=== PATIENT | female | born 1945 | race Caucasian/White ===

== ENCOUNTER → 2017-08-29 06:55 | Outpatient (CLI) | payer MEDICARE, SELFPAY ==
--- NOTE | 2017-08-29 07:02 | BI_ITS ---
MAMMOGRAPHY - BILATERAL SCREENING REASON FOR EXAM: Female, 72 years old. Routine annual screening examination. PERTINENT HISTORY: Non-contributory. Prior right stereotactic breast biopsy. TECHNIQUE: Digital bilateral breast marlen (3D mammographic acquisition) in the CC and MLO projections. 2-D mediolateral oblique (MLO) and craniocaudad (CC) views of both breasts were obtained. CAD: Full Field Digital Mammography with Computer Added Detection was performed. COMPARISON: Comparison is made with prior study dated May 25, 2015 and July 26, 2016. FINDINGS: Breast Composition: The breasts are heterogeneously dense, which may obscure small masses. There are no dominant masses or suspicious calcifications. A tissue clip marker right breast. Scattered benign-appearing calcifications. No other significant abnormalities are identified. There has been no significant change since the prior study. BI/SCREENING MAMM (CAD), BILAT IMPRESSION: Stable bilateral screening mammogram. Yearly follow-up mammogram recommended. (A) ASSESSMENT CATEGORY: BIRADS Category 2: Benign. A letter regarding these results will be sent to the patient by the facility within 30 days. Approximately 10% of breast cancers are not detected by mammography. A normal mammogram should not delay biopsy of a clinically suspicious abnormality. [id number] Electronically Signed: Trevor Delgadillo MD at 14:14 EDT Tel [phone], Service support ,
== END ==
PROVIDERS: Family Provider Family Medicine; PCP Family Medicine; Visit Provider Family Medicine
DX: Z12.31 Encounter for screening mammogram for malignant neoplasm of breast (principal)
CPT/HCPCS: 77063; 77067

== ENCOUNTER → 2018-10-17 07:00 | Outpatient (CLI) | payer MEDICARE, SELFPAY ==
[2018-04-26 07:38] VITALS: BMI 32.5
--- NOTE | 2018-10-17 06:58 | BI_ITS ---
MAMMOGRAPHY - BILATERAL SCREENING REASON FOR EXAM: Female, 73 years old. Routine annual screening examination. PERTINENT HISTORY: Non-contributory. Remote right stereotactic breast biopsy. TECHNIQUE: Digital bilateral breast leeanna (3D mammographic acquisition) in the CC and MLO projections. 2-D mediolateral oblique (MLO) and craniocaudad (CC) views of both breasts were obtained. CAD: Full Field Digital Mammography with Computer Added Detection was performed. COMPARISON: Comparison is made with prior study dated August 29, 2017 and July 26, 2016. FINDINGS: Breast Composition: The breasts are heterogeneously dense, which may obscure small masses. There are no dominant masses or suspicious calcifications. No other significant abnormalities are identified. There has been no significant change since the prior study. BI/SCREEN MAMM (CAD) W/LEEANNA BILAT IMPRESSION: Stable bilateral screening mammogram. Yearly follow-up mammogram recommended. (A) ASSESSMENT CATEGORY: BIRADS Category 1: Negative. A letter regarding these results will be sent to the patient by the facility within 30 days. Approximately 10% of breast cancers are not detected by mammography. A normal mammogram should not delay biopsy of a clinically suspicious abnormality. [id number] Electronically Signed: Trevor Delgadillo, at 10:17 EDT , Service support ,
== END ==
PROVIDERS: Family Provider Family Medicine; PCP Family Medicine; Referring Provider Family Medicine; Visit Provider Family Medicine
DX: Z12.31 Encounter for screening mammogram for malignant neoplasm of breast (principal)
CPT/HCPCS: 77063; 77067

== ENCOUNTER → 2019-03-07 12:12 | Outpatient (CLI) | payer MEDICARE, SELFPAY ==
[2018-04-26 07:38] VITALS: BMI 32.5
--- NOTE | 2019-03-07 12:15 | RAD_ITS ---
STUDY: X-RAY - PELVIS AND RIGHT HIP REASON FOR EXAM: Female, 74 years old. Pain. TECHNIQUE: 3 views of the pelvis and hip. COMPARISON: None. FINDINGS: There is a non-specific bowel gas pattern. Normal visualized soft tissue structures. There is narrowing with cortical sclerosis and osteophyte formation of the sacroiliac joint consistent with mild degenerative osteoarthritic changes. Normal bilateral superior and inferior pubic rami. Normal pubic symphysis. Normal bilateral ischial tuberosities. There are osteoarthritic changes of the femoral head with marginal osteophyte formation. There is osteoarthritic spur formation of the acetabular rim. There is moderate to severe articular joint space narrowing of the hip. No acute fracture. RAD/HIP, UNI W/ Pelvis 2-3 Views IMPRESSION: Degenerative disease as described above, moderate to severe on the right. No acute fracture or subluxation. Electronically Signed: Joana Butterfield MD at 2:21 EST , Service support ,
--- NOTE | 2019-03-07 12:21 | RAD_ITS ---
STUDY: X-RAY - LUMBAR SPINE REASON FOR EXAM: Female, 74 years old. Pain. TECHNIQUE: 5 view(s) of the lumbar spine were obtained. COMPARISON: 11/16/14. FINDINGS: Normal lumbar lordosis. There is no substantial scoliosis. There is a normal alignment of the vertebrae. There is multilevel endplate spondylosis of the lumbar vertebrae. There is multi-level degenerative disc disease with multi-level disc space narrowing. There is no demonstrated fracture. There is no demonstrated spondylolysis of the pars interarticulares. There is multilevel bilateral facet hypertrophic changes. There is atherosclerotic calcification of the abdominal aorta without a demonstrated aneurysm. RAD/L/S Spine Min 4 Views IMPRESSION: Multilevel spondylosis/degenerative disease with no acute fracture, spondylolisthesis or pars defect. Electronically Signed: Joana Butterfield MD at 2:31 EST , Service support ,
== END ==
PROVIDERS: Family Provider Family Medicine; PCP Family Medicine; Referring Provider Family Medicine; Visit Provider Family Medicine
DX: M25.551 Pain in right hip (principal); G89.29 Other chronic pain; M51.36 Other intervertebral disc degeneration, lumbar region
CPT/HCPCS: 72110; 73502

== ENCOUNTER → 2019-11-27 08:11 | Outpatient (CLI) | payer MEDICARE, SELFPAY ==
[2019-05-05 07:25] VITALS: BMI 32.5
--- NOTE | 2019-11-27 08:14 | BI_ITS ---
MAMMOGRAPHY - BILATERAL SCREENING REASON FOR EXAM: Female, 74 years old. Routine annual screening examination. PERTINENT HISTORY: Non-contributory. Remote right stereotactic breast biopsy. TECHNIQUE: Digital bilateral breast leeanna (3D mammographic acquisition) in the CC and MLO projections. 2-D mediolateral oblique (MLO) and craniocaudad (CC) views of both breasts were obtained. CAD: Full Field Digital Mammography with Computer Added Detection was performed. COMPARISON: Comparison is made with prior examination dated 10/17/2018 and 08/29/2017. FINDINGS: Breast Composition: The breasts are heterogeneously dense, which may obscure small masses. There are no dominant masses or suspicious calcifications. Stable benign appearing bilateral macrocalcifications. No other significant abnormalities are identified. There has been no significant change since the prior study. BI/SCREEN MAMM (CAD) W/LEEANNA BILAT IMPRESSION: Stable bilateral screening mammogram. Yearly follow-up mammogram recommended. (A) ASSESSMENT CATEGORY: BIRADS Category 2: Benign. A letter regarding these results will be sent to the patient by the facility within 30 days. Approximately 10% of breast cancers are not detected by mammography. A normal mammogram should not delay biopsy of a clinically suspicious abnormality. [id number] Electronically Signed: Trevor Delgadillo, at 10:21 EDT , Service support ,
== END ==
PROVIDERS: PCP Family Medicine; Referring Provider Family Medicine; Visit Provider Family Medicine
DX: Z12.31 Encounter for screening mammogram for malignant neoplasm of breast (principal)
CPT/HCPCS: 77063; 77067

== ENCOUNTER 2020-02-04 10:14 | Observation (INO) | payer MEDICARE, SELFPAY ==
[2019-05-05 07:25] VITALS: BMI 32.5
[2020-01-14 10:12] LABS: Absolute Lymphocyte Count 2.06 X10^3/uL (0.83-4.51); Basophil# 0.07 X10^3/uL; Basophil% 0.9 % (0-1); Eosinophil# 0.23 X10^3/uL; Eosinophils% 2.9 % (0-5); Hematocrit 45.2 % (37-47); Hemoglobin 14.3 g/dL (12.0-15.0); Lymphocyte # 2.06 X10^3/ul (4.0); Mean Corp Hgb Conc 31.6 g/dL (32-36); Mean Corpuscular Volume 91.7 fL (81-99); Mean Platelet Vol. 10.2 fl (6.2-12.0); Monocyte# 0.54 X10^3/uL; Monocyte% 6.8 % (0-10); NRBC Flagged by Analyzer 0 % (0-5); Neutrophil # 5.02 X10^3/uL (2.7-7.7); Neutrophil % 63.3 % (47-70); Platelet Count 274 K/mm3 (150-450); RBC Distribution Width SD 43.8 fl (35.1-43.9); Red Blood Count 4.93 M/mm3 (4.2-5.4); White Blood Count 7.9 K/mm3 (4.4-11.0)
[2020-01-14 10:42] LABS: Anion Gap 4 (5-15); BUN 15 mg/dL (7-18); BUN/Creat Ratio 17.9 RATIO (10-20); Chloride 104 mmol/L (98-107); Creatinine, Serum 0.84 mg/dL (0.55-1.02); EST Glomerular Filtration Rate 70 mL/min (>60); Est Glom Filt Rate - Afr Amer 85 mL/min (>60); Glucose 91 mg/dL (74-106); Sodium Level 139 mmol/L (136-145)
--- NOTE | 2020-01-14 21:48 | HP.PCM_ITS ---
History and Physical History and Physical [facility] Patient Name: Ashleigh Alvarez : 1945 From: JC ROLDAN PA-C DATE OF SURGERY: 02/04/2020 SCHEDULED PROCEDURE: right total hip arthroplasty HISTORY OF PRESENT ILLNESS: Preoperative history and physical exam was performed on January 14, 2020. This is a 74-year-old female who has been having ongoing pain for the past 1 year and her right hip. Patient states she did have a fall in April 2018. Her pain can reach 5/10 with activity. Patient does complain of a limping gait due to the pain. Her pain has been intermittent, dull, aching. She has difficulty with activities of daily living including housework and shopping. She has difficulty putting on her socks and shoes. Patient does have start up pain. She does complain of right groin pain. Patient has attempted conservative measures of the right hip including rest, heat, cortisone injection with minimal relief. She has been on oral medications including Advil with no relief in symptoms. Patient has been having occasional pain at nighttime. After failing conservative measures and discussing all treatment options with Dr. Rojelio Dill, the patient does wish to proceed with a right total hip arthroplasty. We are obtaining surgical clearance from the primary care physician Dr. Trevino. Patient currently denies chest pain, shortness of breath, fevers chills, recent infections. REVIEW OF SYSTEMS: ROS: Const: Denies anorexia, anxiety, change in appetite, fever and weight change,hard of hearing, and vision problems. CV: Denies chest pain, heart murmur, irregular heartbeat and peripheral vascular disease. Resp: Denies asthma, cough, pneumonia, sleep apnea, shortness of breath, tuberculosis and wheezing. GI: Denies constipation, diarrhea, heartburn, nausea, bloody stools and vomiting, and difficulty swallowing. : Reports postmenopausal symptoms. Denies incontinence. Musculo: Denies leg swelling, trouble walking and weakness and limp. Skin: Denies Raynaud's, history of shingles and tattoo. Neuro: Denies ambulatory dysfunction, dizziness, numbness/tingling and tremor. Psych: Denies anxiety, depression, insomnia, mental illness and stress. Ganesh/Lymph: Denies anemia, bleeding/bruising tendency and past transfusion. Reviewed, no changes. PAST MEDICAL HISTORY: Advance Care Plan: No Advance Directives Effective Date: 04/16/2019 PMH: Medical Problems: High Blood Pressure, Acid Reflex Accidents: Fracture - (2001) RIGHT LEG Surgical Hx: Tonsillectomy - (1967) [place] Tubal Ligation - (1974) [facility] Foot Surgery - (1997) LT Carpal Tunnel - (1998) [facility] Hemorrhoidectomy, LT Catarcat Caterac Sugery - (07/09/2018) @[facility], Anesthesia Complications: None Assistive Devices: Contacts Reviewed and updated. 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 Personal Habits: Cigarette Use: Never.Smokeless Tobacco: Never Used Smokeless Tobacco.E-Cigarette Use: Never used.Alcohol: Occasionally.Drug Use: Denies Use.Enjoy Exercising: Daily. Reviewed, no changes. VITALS: Ht: 63 Wt: 187lb 2oz Wt k.880 BMI: 33.1 BP: 140/92 Pulse: 69 Resp: 16 T: 95.2 T: 35.1C Pain Level: 6 ALLERGIES: No Known Drug Allergy MEDICATIONS: Lansoprazole 30 mg Take 1 capsule by mouth daily, Fluticasone Propionate 50 mcg/Act 1 spray by Nasal route daily/ NEEDED, Atenolol 50 mg 1 PO qday, Aspirin 81 mg 1 PO qday, Vitamin D3 25 mcg (1000 Ut) 1 po qd, Advil 200 mg 1po bid PRE-OP EXAM: General appearance:NORMAL Other: Eyes: Conjunctivae and lids: NORMAL Pupils: ERR Ears, Nose, Mouth, and Throat: NORMAL Other: Inspection of lips, teeth and gums: NORMAL Other: Neck: Examination of neck: no masses noted. Respiratory: Assessment of respiratory effort: NORMAL Other: Auscultation of lungs: clear to auscultation no wheezes, rhonchi or rales. Cardiovascular: Auscultation of heart: regular rate and rhythm, positive systolic murmur. Exam of carotid arteries: NORMAL Other: Gastrointestinal: Exam of abdomen: soft, nontender, nondistended bowel sounds present. PHYSICAL EXAMINATION: Patient walks with an antalgic gait. Right hip is cool to touch that erythema or signs of infection. She has tenderness to palpation of the greater trochanteric region. Full extension. She has obligatory external rotation with flexion. Internal rotation 5, external rotation 25. Sensation intact to light touch. IMAGING STUDIES: Previous x-rays of the right hip reveal joint space narrowing, subchondral sclerosis, osteophyte formation consistent with severe stage IV osteoarthritis with subchondral cysts noted in the femoral head with flattening of the femoral head. IMPRESSION: 1. Severe right hip osteoarthritis 2. Hypertension 3. Gastroesophageal reflux disease PLAN: Dr. Rojelio Dill did discuss and review with the patient all treatment options including surgical versus nonsurgical options. Patient does wish to proceed with the above-stated procedure. Potential risks, benefits, and complications of the procedure were discussed in detail including but not limited to , infection, nerve and blood vessel damage, persistent pain, numbness, tingling, paresthesias, blood clot, pulmonary embolism, and requirement for possible further surgery. The patient expressed full understanding and has no further questions for the doctor. Patient does agree to proceed with the above-stated procedure and has signed the surgery consent form. We discussed the current risks associated with COVID 19. This does include the risk of exposure while in the hospital. Patient was reassured local hospitals have low infection rates and are taking all necessary precautions to avoid exposure to patients. In addition, we discussed strategies that can be used to help limit exposure including those that limit the patient's time in the hospital. Also using strategies to limit the patient's need for continued inpatient services after being discharged from the hospital. Patient was notified that we will need to comply with any screening or testing the hospital wishes to perform or that surgery may be delayed for any positive results. This dictation was created using voice recognition software. Phonetic and/or grammatical errors may exist. ___ I have re-examined the patient. There are no clinical changes since date of exam. ___ See progress notes for changes. ___ Dictated on admission Date: Time: Signature:
--- NOTE | 2020-01-28 08:48 | EKG12_ITS ---
Test Reason : PRE OP Blood Pressure : / mmHG Vent. Rate : 062 BPM Atrial Rate : 062 BPM P-R Int : 164 ms QRS Dur : 130 ms QT Int : 432 ms P-R-T Axes : 048 -49 035 degrees QTc Int : 438 ms Normal sinus rhythm Right bundle branch block Left anterior fascicular block Bifascicular block Voltage criteria for left ventricular hypertrophy Abnormal ECG Confirmed by DERICK LEONARDO, JOAN ([id number]), digital editor CANDE VICKERS ([id number]) on 01/29/2020 9:00:08 AM Referred By: Rojelio Dill Confirmed By:JOAN SEPULVEDA MD
[2020-01-28 11:21] LABS: Magnesium 2.1 mg/dL (1.6-2.6)
[2020-02-04] VITALS (14 sets, daily range): BP systolic 112–157; BP diastolic 51–84; PULSE 66–89; RESP 14–18; TEMP 36–37.1; O2SAT 94–100; BMI 32.5; BMI 36.7
[2020-02-04] MEDS: Gabapentin 600 MG Tablet PO (10:35)
[2020-02-04] MEDS: Acetaminophen 500 MG Tablet 1000 MG PO ×2 (10:35→20:29)
[2020-02-04] MEDS: Lactated Ringers 1,000 ML 999 ML IV ×2 (10:46→12:05)
[2020-02-04] MEDS: Celecoxib 200 MG Capsule 400 MG PO (10:53)
[2020-02-04 11:11] LABS: Bedside Glucose 74 mg/dL (70-110)
--- NOTE | 2020-02-04 12:00 | RAD_ITS ---
STUDY: X-RAY - PELVIS AND RIGHT HIP REASON FOR EXAM: Female, 75 years old. TOTAL ANTERIOR HIP IN O.R. 8.7 SEC. FL. TECHNIQUE: 1 views of the pelvis and hip. COMPARISON: None. FINDINGS: Intraoperative imaging provided for right total hip replacement. There is good alignment RAD/Hip 1 view with Pelvis IMPRESSION: Status post right total hip replacement. There is good alignment. Electronically Signed: Trevor Delgadillo, at 14:48 EST , Service support ,
[2020-02-04] MEDS: Cefazolin 2 GM in 0.9% Normal Saline 100 ML IV (12:02)
[2020-02-04] MEDS: dexAMETHasone 10 MG/ML Vial IV (12:12)
[2020-02-04] MEDS: Lactated Ringers 1,000 ML 75 ML IV (12:30)
--- NOTE | 2020-02-04 13:13 | OP.PCM_ITS ---
Report of Operation Date of Procedure: 02/04/20 Pre-Operative Diagnosis: Right hip primary osteoarthritis Post-Operative Diagnosis: Right hip primary osteoarthritis Surgery/Procedure Performed:: Right direct anterior minimally invasive total hip replacement Description of Surgical Findings:: Stable hip with equal leg lengths rhinestone setter: Bhupendra Gordon Type of Anesthesia:: Spinal Anesthesiologist: Donis Colon Special Medications: 2 g Ancef, 1 g TXA at incision, 1 g TXA closure, 10 mg Decadron, joint cocktail (5 mg Duramorph, 30 mL of 0.5% Ropivicaine, 1000 units of epinephrine, 30 mg of Toradol) Specimen's removed: Bony cuts Estimated Blood Loss (mL): 200 Fluids Replaced: 1600 mL crystalloid Description of Procedure: Components used: 1. Accolade 2 Avenel femoral stem size 3 127? 2. Avenel trident 2 acetabular shell size 50 mm 3. Sandro X3 polyethylene D 4. Avenel Biolox delta 36mm, -2.5mm femoral head Brief history operative indications: 75 yo f who failed conservative measures for their hip osteoarthritis. X-rays were consistent with osteoarthritis including joint space narrowing, osteophyte formation and subchondral cysts. Total hip replacement was discussed with the patient with risks and benefits including but not limited to blood loss, DVTs, PEs, neurovascular damage, dislocation, general risks of anesthesia including loss of life. Patient demonstrated an understanding medical clearance is obtained the patient was consented for surgery. Procedure: On the date of procedure the patient's R hip was marked in the preoperative area. Patient was then taken back to the operating room where anesthesia assumed control of the C-spine and airway and administered anesthetic. Patient was transferred to the operating table and placed in the supine position. The hips were placed at the break of the bed and a sacral bump was placed. The R lower extremity was then prepped out in a sterile fashion using chlorhexidine while the surgeon scrubbed. The PA was vital in the positioning of the patient. Upon reentering the room the R lower extremity was draped in the standard orthopedic fashion and the incision was marked. A timeout was called and everyone agreed upon the side, the site, the procedure be performed, antibody given, and patient's identity. At this time incision was made through skin, subcutaneous tissue, and fat down to fascia. The fascia was then incised and the TFL was retracted laterally. A retractor was placed on the lateral border of the femoral neck. Attention was directed to the inferior portion of the approach and all crossing vessels were identified and appropriately coagulated. A retractor was then placed on the medial portion of the femoral neck. The anterior capsule was then cleared of all soft tissue and then H shaped capsulotomy was made. The retractors were then placed inside the capsule. The femoral neck was identified and a cleanup cut was made. At this time a power corkscrew was used to remove the femoral head. Attention was then turned toward the acetabulum where the soft tissues were appropriately retracted and the acetabulum was sequentially reamed to 50 mm. A 50 mm cup was then selected and impacted into place. Acetabular liner was impacted into place and locking mechanism was verified. The position of the acetabular cup was then verified under live fluoroscopy. Attention was then turned to the femur. Soft tissue releases on the medial and lateral femoral neck were appropriately done, the leg was externally rotated and lateralized. A Silver retractor was placed medially and proximally to the greater trochanter this allowed appropriate visualization and exposure of the femoral canal. Rongeour was then used to remove excess lateral bone. A canal finder and entry broach were used to open the proximal canal. Once we verified we were down the femoral canal we subsequently broached up to a size 3 femur. The appropriate neck was placed in the previously selected head was trialed with a -2.5 mm neck. Traction was pulled and the hip was reduced with internal rotation. Once it was appropriately reduced and stability was checked. There was minimal shuck, equal leg lengths and appropriate stability with hyperex tension and external rotation as well as with 90? flexion and internal rotation. Fluoroscopy was then also used to verify the position of the components and leg lengths using the contralateral side for comparison. The trial components were then dislocated the proximal femur was again exposed and the components were removed from the wound. The final components were verified and opened. The wound was copiously irrigated out with normal saline. The acetabulum was checked for any residual debris. The final components were placed and impacted. Traction and internal rotation were again used to reduce the hip. After adequate reduction the hip remained stable with appropriate leg lengths. The final components were once again checked with live fluoroscopy and were found to be satisfactory. The wound was then copiously irrigated with normal saline once more, and hemostasis was obtained. Closure was then done using #1 Vicryl runner to close the fascia. A 2-0 vicryl interuppted sutures were used to close the subcutaneous skin. A 3-0 Monocryl and Steri-Strips were used for final skin closure. A Silverlon dressing was placed. Patient was awakened by anesthesia and [facility] Patient was then transferred to the PACU for recovery. During the course of the procedure the physician crystal machining coordinator (PE) played a vital role. Their intimate knowledge of my steps in the procedure aided in safe and expedient completion of the procedure. The PE played a vital rolls in positioning particularly in obtaining the appropriate positioning of the sacral bump. The PE was also vital in the retraction of soft tissues during the exposure and especially the femoral work as this is a vital part of the procedure to prevent complications and fractures. The PE was also vital and p rotecting soft tissues during times of bony cuts and reaming. He also played a vital role in closure with my direct supervision. The PE was also important during reduction and dislocation of the joint and trials intraoperatively. Postoperative plan: Patient will get 24 hours postop antibiotics. Patient will get in-house physical therapy and will be weight-bear as tolerated. Patient will follow up in office in 2 weeks for a wound check and x-rays. Aspirin 81 mg twice daily. - Complications No intraoperative complications - Admit VTE Documentation VTE Present on Admission: No VTE Mechan Device Prophylaxis: SCD's, Thigh High SKYLAR Hose VTE Pharm Prophylaxis ordered?: Yes
--- NOTE | 2020-02-04 13:58 | RAD_ITS ---
STUDY: X-RAY - PELVIS AND RIGHT HIP REASON FOR EXAM: Female, 75 years old. Post op right hip TECHNIQUE: 2 views of the pelvis and hip. COMPARISON: Comparison is made with prior study dated 03/07/2019. FINDINGS: Patient status post right total hip replacement. There is good alignment. RAD/Hip Min 2 Views (Portable) IMPRESSION: Status post right total hip replacement. There is good alignment. Electronically Signed: Trevor Delgadillo, at 14:32 EST , Service support ,
[2020-02-04] MEDS: Lactated Ringers 1,000 ML 125 ML IV (17:18)
[2020-02-04] MEDS: Ondansetron 4 MG/2 ML Vial IV (18:02)
[2020-02-04] MEDS: Ensure Surgery 237 ML LIQUID PO (18:04)
[2020-02-04] MEDS: Aspirin 81 MG TAB.CHEW PO (18:04)
[2020-02-04] MEDS: Cefazolin 1 GM/50 ML BAG IV (20:29)
[2020-02-04] MEDS: Senna/Docusate Sodium 1 Tablet 2 TABLET PO (20:29)
[2020-02-04] MEDS: oxyCODONE 5 MG Tablet PO (23:30)
[2020-02-05] MEDS: Cefazolin 1 GM/50 ML BAG IV (03:20)
[2020-02-05 05:29] VITALS: BP 154/70; PULSE 86; RESP 16; TEMP 36.6; O2SAT 96
[2020-02-05] MEDS: Acetaminophen 500 MG Tablet 1000 MG PO ×2 (05:41→13:32)
[2020-02-05 07:30] LABS: Hematocrit 38.8 % (37-47); Hemoglobin 12.7 g/dL (12.0-15.0); Mean Corp Hgb Conc 32.7 g/dL (32-36); Mean Corpuscular Hgb 29.5 pg (27.0-32.0); Mean Platelet Vol. 9.9 fl (6.2-12.0); Platelet Count 268 K/mm3 (150-450); RBC Distribution Width CV 12.3 % (11.6-14.6); Red Blood Count 4.31 M/mm3 (4.2-5.4); White Blood Count 15.1 K/mm3 (4.4-11.0)
[2020-02-05 08:00] LABS: Anion Gap 6 (5-15); BUN 17 mg/dL (7-18); BUN/Creat Ratio 22.2 RATIO (10-20); Calcium,Total 8.3 mg/dL (8.5-10.1); Chloride 105 mmol/L (98-107); Creatinine, Serum 0.77 mg/dL (0.55-1.02); EST Glomerular Filtration Rate 78 mL/min (>60); Est Glom Filt Rate - Afr Amer 94 mL/min (>60); Estimated Creatinine Clearance 39.59 ml/min; Glucose 119 mg/dL (74-106); Potassium 4.3 mmol/L (3.5-5.1); Sodium Level 139 mmol/L (136-145)
[2020-02-05] MEDS: Atenolol 50 MG Tablet PO (08:07)
[2020-02-05] MEDS: Pantoprazole Sodium 40 MG Tablet PO (08:07)
[2020-02-05] MEDS: Aspirin 81 MG TAB.CHEW PO (08:08)
[2020-02-05] MEDS: Famotidine 20 MG Tablet PO (08:08)
[2020-02-05 08:10] VITALS: BP 137/66; PULSE 86; RESP 18; TEMP 36.6; O2SAT 95
--- NOTE | 2020-02-05 09:19 | PCM.PN.ORT ---
Subjective: The patient was sitting in bed finishing up physical therapy upon examination. Patient denies any chest pain, shortness of breath, dizziness, lightheadedness, nausea or vomiting, or calf pain. Pain is controlled on medications. No adverse overnight events. Patient is doing very well. Pain is well controlled. She has tolerated therapy very well. She is wishing to go home today. Patient did have some nausea yesterday after surgery but this is resolved. Objective: Vital signs stable and afebrile. Patient is able to plantarflex and dorsiflex actively. Sensation is intact to light touch to saphenous, sural, superficial and deep peroneal, and tibial distribution. Dressing is clean dry and intact. Negative Homans bilaterally, negative signs and symptoms of DVT. - Physical Exam Vitals/I&O's: Vital Signs Temp Pulse Resp BP Pulse Ox 97.8 F 86 18 137/66 H 95 02/05/20 08:10 02/05/20 08:10 02/05/20 08:10 02/05/20 08:10 02/05/20 08:10 Oxygen Flow Rate (L/min) 6 Oxygen Delivery Method Room Air Weight: 94 kg Body Mass Index (BMI) 36.7 Intake and Output for Last 24 Hours 02/03/20 02/04/20 02/05/20 23:59 23:59 23:59 Intake Total 2772.5 / 3372.5 1950 / 1950 Output Total 500 / 500 950 / 950 Balance 2272.5 / 2872.5 1000 / 1000 General: Alert, Oriented x3, Cooperative, No apparent distress Laboratory Results 02/04/20 10:55: POC Glucose 74 02/05/20 07:05: WBC 15.1 H, RBC 4.31, Hgb 12.7, Hct 38.8, MCV 90.0, MCH 29.5, MCHC 32.7, RDW Std Deviation 41.0, RDW Coeff of Nikole 12.3, Plt Count 268, MPV 9.9 02/05/20 07:05: Sodium 139, Potassium 4.3, Chloride 105, Carbon Dioxide 28.0, Anion Gap 6, BUN 17, Creatinine 0.77, Estim Creat Clear Calc 39.59, Est GFR (MDRD) Af Amer 94, Est GFR (MDRD) Non-Af 78, BUN/Creatinine Ratio 22.2 H, Glucose 119 H, Calcium 8.3 L Current Medications Acetaminophen (Acetaminophen 500 Mg Tablet) 1,000 mg PO Q8 [facility] Last Admin: 02/05/20 05:41 Dose: 1,000 mg Documented by: Aspirin (Aspirin 81 Mg Tab.Chew) 81 mg PO BIDCM [facility] Last Admin: 02/05/20 08:08 Dose: 81 mg Documented by: Atenolol (Atenolol 50 Mg Tablet) 50 mg PO DAILY [facility] Last Admin: 02/05/20 08:07 Dose: 50 mg Documented by: Cholecalciferol (Cholecalciferol (Vit D3) 1,000 Unit (25mcg)) 1,000 unit PO DAILY [facility] Last Admin: 02/05/20 08:08 Dose: 1,000 unit Documented by: Enteral Nutritional Formula (Ensure Surgery 237 Ml Liquid) 237 ml PO TIDCM [facility] Last Admin: 02/05/20 08:11 Dose: Not Given Documented by: Famotidine (Famotidine 20 Mg Tablet) 20 mg PO DAILY [facility] Last Admin: 02/05/20 08:08 Dose: 20 mg Documented by: Fluticasone Propionate (Fluticasone 0.05% 1 [place] Nasal.Sry) 1 spray NASAL DAILY PRN PRN Reason: ALLERGIES Insulin Human Lispro (Insulin Lispro 100 Unit/Ml Insuln.Pen) 1 - 6 unit SC Q4H PRN PRN; Protocol PRN Reason: BG>/= 180, SEE PROTOCOL Ketorolac Tromethamine (Ketorolac 15 Mg/Ml Vial) 15 mg IV Q6H PRN PRN PRN Reason: Pain Score 1-5 Stop: 02/06/20 07:28 Meloxicam (Meloxicam 7.5 Mg Tablet) 7.5 mg PO BID [facility] Morphine Sulfate (Morphine 2 Mg/Ml Syringe) 2 - 4 mg IV Q2H PRN PRN PRN Reason: Pain Score 4-10 Morphine Sulfate (Morphine 4 Mg/Ml Syringe) 2 - 4 mg IV Q2H PRN PRN PRN Reason: Pain Score 4-10 Ondansetron HCl (Ondansetron 4 Mg/2 Ml Vial) 4 mg IV Q8H PRN PRN PRN Reason: NAUSEA Last Admin: 02/04/20 18:02 Dose: 4 mg Documented by: Oxycodone HCl (Oxycodone 5 Mg Tablet) 5 - 10 mg PO Q4H PRN PRN PRN Reason: Pain Score 4-10 Last Admin: 02/04/20 23:30 Dose: 10 mg Documented by: Pantoprazole Sodium (Pantoprazole Sodium 40 Mg Tablet) 40 mg PO DAILY [facility] Last Admin: 02/05/20 08:07 Dose: 40 mg Documented by: Promethazine HCl (Promethazine 25 Mg/Ml Syringe) 12.5 mg IM Q6H PRN PRN; Protocol PRN Reason: NAUSEA/VOMITING Senna/Docusate Sodium (Senna/Docusate Sodium 1 Tablet) 2 tablet PO BID [facility] Last Admin: 02/05/20 08:09 Dose: Not Given Documented by: Sodium Chloride (0.9% Saline Lock 10 Ml Syringe) 10 - 40 ml IV UD PRN PRN Reason: SALINE FLUSH Medical Necessity - Tobacco Use Smoking Status: Never smoker Assessment/Plan All Active Problems (Last Reviewed 05/05/19 @ 07:25 by Elke Quintana) URI, acute (Acute) 1. S/P right direct anterior total hip arthroplasty POD #1 2. Continue Pain Medications: Tylenol, meloxicam, oxycodone as needed 3. DVT Prophylaxis: Take 81 mg aspirin twice daily for 4 weeks postoperatively for DVT prophylaxis 4. PT/OT: Weightbearing as tolerated 5. H & H: 12.7/38.8, asymptomatic 6. Reactive leukocytosis: Currently 15.1, afebrile. Patient did receive Decadron intraoperatively 7. Encouraged Incentive Spirometry 8. Disposition: Orthopedically stable, plan will be for discharge home today. Patient would like her prescriptions sent to [facility] in [facility]. Patient does not want me to send narcotic but I will give her a prescription that she can take with her. She will only get filled if needed. Patient states she has a stool softener at home. She will continue with this until her first bowel movement. She has outpatient physical therapy established. She will follow-up per postop instructions. I have reviewed the [place] Automated Rx Reporting System (OARRS) report for this patient for refill pattern and other prescriber involvement as part of the appropriate surveillance for the provision of acute and chronic controlled medications. The report was requested and reviewed on the date of this entry and was considered in the prescribing process.
--- NOTE | 2020-02-05 09:25 | PCM.DC.THR ---
Discharge Diet: No Restrictions Discharge Activity: May Not Drive - while taking narcotic pain medications. May shower in (days): 1 - Dressing must be intact to skin. Turn dressing away from water. Do not submerge underwater for 4 weeks postoperatively Ice area for (Minutes): 20 - Every 1-2 hours while awake Weight Bearing Status: Weight bearing as tolerated Elevate: Operative Extremity Additional Activity Instructions:: Wear elastic stockings for 2 weeks. DO NOT use alcohol with narcotic pain medication. DO NOT make important decisions while taking narcotic medication. If you have problems with taking your medication (rash, itching, nausea, etc.) call the office at once. Call your doctor if your incision/area has: Increased Pain/ Swelling, Increased Redness, Foul Smelling Discharge Call your doctor if you observe: Fever of 101 or Higher Remove Dressing in (days):: 4 - Okay to remove dressing on February 09, 2020 Additional Instructions: Follow orthopedic postop instructions Allergies/Adverse Reactions: Allergies No Known Allergies Allergy (Verified 01/21/20 08:06) Medications to take at Discharge Atenolol [Tenormin (beta franca)] 50 mg PO DAILY 08/07/13 Cholecalciferol (VIT D3) [Vitamin D3] 1,000 unit PO DAILY 01/21/20 Fluticasone Propionate 1 spray INTRANASAL DAILY PRN 01/21/20 Lansoprazole [Prevacid] 30 mg PO DAILY 01/21/20 Acetaminophen [Tylenol] 1,000 mg PO Q8 #100 tab 02/05/20 Aspirin [Aspirin, Baby] 81 mg PO BIDCM 30 Days tab 02/05/20 Meloxicam [Mobic] 7.5 mg PO BID #60 tab 02/05/20 Oxycodone [Oxyir] 5 - 10 mg PO Q4H PRN PRN 4 Days #48 tab 02/05/20 Senna/Docusate Sodium [Senokot-S] 2 tablet PO BID tablet 02/05/20 The following prescriptions were given: Meloxicam [Mobic] 7.5 mg PO BID #60 tab Transmission Status: Pending to [facility]/pharmacy #[id number] Oxycodone [Oxyir] 5 - 10 mg PO Q4H PRN PRN 4 Days #48 tab PRN Reason: Pain Score 4-10 Prescription Printed Acetaminophen [Tylenol] 1,000 mg PO Q8 #100 tab Transmission Status: Pending to [facility]/pharmacy #[id number] Primary Care Physician: Jose Luis Trevino DO [Primary Care Provider] - Test Results: Test results from this visit will be discussed in further detail at your follow-up appointment, if applicable. Please Follow Up With: [facility] When: 02/09/20 @ 7:00 am Please Follow Up With: Bhupendra Gordon PA-C When: 02/18/20 @ 9:15 am
--- NOTE | 2020-02-05 11:00 | CASEMGMT ---
RN PAIGE Face to Face with patient for initial transition planning/care coordination assessment. RN CM introduced self and role at [facility]. Patient sitting in chair, alert and oriented. Patient willing to participate in assessment and is able to answer all questions appropriately. Care providers, pharmacy, and demographics verified. Patient wishes to discharge home and is setup with [facility] for outpatient therapy. Patient states she has no further needs or concerns at this time. CM to follow for discharge planning needs that may arise. PCP: Belinda Specialists: jenniefr Dill Pharmacy: [facility] Insurance: [email or web address] [facility] Prescription Benefit: yes Living Will/HPOA: yes, James MEDRANO: Living Arrangements: Patient lives with in a single story home with 1 step to enter the home. Patient states she was independent at home prior to surgery. Transportation: DME/HHC: Patient states she has walker and cane at home. Patient is setup with [facility] for outpatient therapy starting Sunday. Disposition Plan: Patient to discharge home with outpatient therapy, family support, and follow-up plans in place. Keren SALAZAR, RN, CM
--- NOTE | 2020-02-05 11:05 | CASEMGMT ---
JANINE GIBSON in to discuss TAI form with patient. RN PAIGE explained TAI for to patient, patient voiced understanding. Patient signed TAI form and placed in chart. Copy provided to patient. Patient had no further questions or concerns at this time.
[2020-02-05 13:45] VITALS: BP 146/98; PULSE 80; RESP 16; TEMP 36.7; O2SAT 96
== END 2020-02-05 14:05 | disposition home or self-care (01) ==
LOC: SDC 10:14 → MS3 10:14
PROVIDERS: Anesthesiology; Admitting Provider Specialist; PCP Family Medicine; Referring Provider Specialist; Visit Provider Specialist
PROC: (CPT 27284; principal; 2020-02-04 11:35)
DX: M16.11 Unilateral primary osteoarthritis, right hip (principal); Z20.828 Contact with and (suspected) exposure to other viral communicable diseases; I10 Essential (primary) hypertension; K21.9 Gastro-esophageal reflux disease without esophagitis; Z79.899 Other long term (current) drug therapy; Z79.82 Long term (current) use of aspirin; I45.2 Bifascicular block
CPT/HCPCS: 01214; 27130; 36415; 73501; 73502; 76000; 80048; 82962; 83735; 85025; 85027; 87081; 87635; 93005; 96361; 96365; 96366; 96375; 97110; 97116; 97162; 97166; 97530; 97535; 99218; 99251; C1776; C9803; J7120; G0378; G0379; G0463; J2405; U0003

== ENCOUNTER → 2022-12-21 | Outpatient (CLI) | payer MEDICARE, SELFPAY ==
[2022-12-21 11:59] LABS: Absolute Lymphocyte Count 1.97 X10^3/uL (0.83-4.51); Absolute Neutrophil Count 4.5 X10^3/uL (2.0-7.7); Basophil# 0.07 X10^3/uL; Eosinophil# 0.11 X10^3/uL; Eosinophils% 1.5 % (0-5); Hematocrit 44.8 % (37-47); Lymphocyte # 1.97 X10^3/ul (0.83-4.51); Lymphocyte % 27.3 % (19-41); Mean Corp Hgb Conc 31.3 g/dL (32-36); Mean Corpuscular Hgb 29.9 pg (27.0-32.0); Mean Corpuscular Volume 95.5 fL (81-99); Mean Platelet Vol. 10.6 fl (6.2-12.0); Monocyte# 0.58 X10^3/uL; NRBC Flagged by Analyzer 0 % (0-5); Neutrophil # 4.47 X10^3/uL (2.7-7.7); Neutrophil % 61.9 % (47-70); Platelet Count 275 K/mm3 (150-450); RBC Distribution Width CV 12.9 % (11.6-14.6); RBC Distribution Width SD 45.9 fl (35.1-43.9); Red Blood Count 4.69 M/mm3 (4.2-5.4); White Blood Count 7.2 K/mm3 (4.4-11.0)
[2022-12-21 12:23] LABS: ALB/GLOB Ratio 0.9 RATIO (0.9-2.4); AST(SGOT) 12 U/L (15-37); Alanine Aminotransfer ALT/SGPT 20 U/L (13-56); Albumin, Serum 3.4 g/dL (3.2-5.0); Alkaline Phosphatase 88 U/L (45-117); Anion Gap 3 (5-15); BUN 20 mg/dL (7-18); BUN/Creat Ratio 18.2 RATIO (10-20); Calcium,Total 9.2 mg/dL (8.5-10.1); Chloride 103 mmol/L (98-107); Cholesterol 243 mg/dL (200); EST Glomerular Filtration Rate 51 mL/min (>60); Est Glom Filt Rate - Afr Amer 62 mL/min (>60); Globulin 3.6 g/dL (2.2-4.2); Glucose 94 mg/dL (74-106); High Density Lipoprotein 52 mg/dL; Potassium 3.9 mmol/L (3.5-5.1); Sodium Level 138 mmol/L (136-145); Triglycerides 220 mg/dL; Very Low Density Lipoprotein 44 mg/dL (5-40)
== END | disposition home or self-care (01) ==
PROVIDERS: PCP Family Medicine; Referring Provider Family Medicine; Visit Provider Family Medicine
DX: Z00.00 Encounter for general adult medical examination without abnormal findings (principal); E78.5 Hyperlipidemia, unspecified; I10 Essential (primary) hypertension
CPT/HCPCS: 36415; 80053; 80061; 85025

== ENCOUNTER → 2023-02-08 | Outpatient (CLI) | payer MEDICARE, SELFPAY ==
[2023-02-08 12:24] LABS: Thyroid Stim Hormone (TSH) 2.11 uIU/mL (0.358-3.74)
== END | disposition home or self-care (01) ==
LOC: BFHLAB 10:25
PROVIDERS: PCP Family Medicine; Visit Provider Family Medicine
DX: R53.83 Other fatigue (principal)
CPT/HCPCS: 36415; 84443

== ENCOUNTER → 2023-03-09 | Outpatient (CLI) | payer MEDICARE, SELFPAY ==
--- NOTE | 2023-03-09 10:46 | ECHOD_ITS ---
Reason For Study: Murmur Procedure This was a 2D Doppler, Color Flow transthoracic echocardiogram. Exam performed in department. Left Ventricle Normal LV size. Mild concentric left ventricular hypertrophy. The left ventricular ejection fraction is 65 %. Diastolic function is indeterminate. Right Ventricle Normal right ventricle. Atria The left atrium is moderately enlarged. Normal right atrium. Mitral Valve There is Severe focal posterior mitral annular calcification. Mild-Moderate (1-2+) mitral valve insufficiency. Tricuspid Valve Trivial tricuspid valve insufficiency. Normal pulmonary artery pressure. Aortic Valve Mild aortic stenosis. Trivial aortic valve insufficiency. Pulmonic Valve The pulmonic valve is not well visualized. Great Vessels Normal sized aortic root. Pericardium/Pleural No pericardial effusion. MMode/2D Measurements & Calculations LVIDd: 3.4 cm IVSd: 1.1 cm LVOT diam: 2.0 cm LVIDs: 2.0 cm LVPWd: 1.0 cm LVOT area: 3.0 cm2 RVDd: 3.1 cm FS: 41.0 % Ao root diam: 3.0 cm LAV(MOD-bp): 49.6 ml LVAd ap4: 17.7 cm2 ACS: 0.75 cm LAV(MOD-bp) Indexed: 25.9 ml/m2 LVLd ap4: 6.4 cm LAV(MOD-sp2): 51.0 ml EDV(MOD-sp4): 40.5 ml LAV(MOD-sp4): 42.1 ml EDV(sp4-el): 41.7 ml LVAs ap4: 9.1 cm2 LVLs ap4: 5.1 cm ESV(MOD-sp4): 13.5 ml ESV(sp4-el): 13.7 ml EF(MOD-sp4): 66.7 % EF(sp4-el): 67.2 % SV(MOD-sp4): 27.0 ml SV(sp4-el): 28.0 ml LA A4 area: 17.2 cm2 LA dimension(2D): 4.2 cm RA A4 area: 10.3 cm2 TAPSE: 2.2 cm Time Measurements MV dec time: 0.33 sec Doppler Measurements & Calculations MV E max jose: 111.6 cm/sec Lat Peak E' Jose: 4.6 cm/sec Med Peak E' Jose: 4.2 cm/sec MV A max jose: 167.8 cm/sec E/E' lat: 24.2 E/E' med: 26.8 MV E/A: 0.67 MV V2 max: 181.5 cm/sec Ao V2 max: 215.3 cm/sec MV max P.2 mmHg MV dec slope: 338.4 cm/sec2 Ao max P.6 mmHg MV V2 mean: 116.6 cm/sec Ao V2 mean: 161.1 cm/sec MV mean P.0 mmHg Ao mean P.2 mmHg MV V2 VTI: 43.0 cm Ao V2 VTI: 51.3 cm AV (velocity ratio): 0.65 MVA(VTI): 2.3 cm2 PRITESH(I,D): 1.9 cm2 PRITESH(V,D): 1.8 cm2 LV V1 max: 131.8 cm/sec SV(LVOT): 99.4 ml PA V2 max: 84.0 cm/sec LV V1 max P.0 mmHg LV V1 mean P.6 mmHg LV V1 mean: 103.4 cm/sec LV V1 VTI: 33.2 cm TR max jose: 277.7 cm/sec TR max P.9 mmHg ECHO/Echo Complete Interpretation Summary Mild concentric left ventricular hypertrophy. The left ventricular ejection fraction is 65 %. Diastolic function is indeterminate. The left atrium is moderately enlarged. There is Severe focal posterior mitral annular calcification. Mild-Moderate (1-2+) mitral valve insufficiency. Mild aortic stenosis. Ordering Physician: Sheila Contreras Referring Physician: Sheila Contreras Performed By: Trisha Bowser, ERIKA, RVT
== END | disposition home or self-care (01) ==
LOC: CVS 10:45
PROVIDERS: PCP Family Medicine; Referring Provider Family Medicine; Visit Provider Family Medicine
DX: R01.1 Cardiac murmur, unspecified (principal); R53.83 Other fatigue
CPT/HCPCS: 93306

== ENCOUNTER → 2023-05-11 | Outpatient (CLI) | payer MEDICARE, SELFPAY ==
--- NOTE | 2023-05-11 06:44 | CDU_ITS ---
Reason For Study: LIGHTHEADEDNESS Rt. Velocities/BP Lt. Velocities/BP Prox CCA 47.4/10.6 cm/sec. Prox CCA 85.3/12.6 cm/sec. Mid CCA 48.7/9.1 cm/sec. Mid CCA 66.4/10.7 cm/sec. Dist CCA 45.0/11.0 cm/sec. Dist CCA 56.3/11.0 cm/sec. Prox ICA 38.2/11.1 cm/sec. Prox ICA 51.6/11.9 cm/sec. Mid ICA 68.0/19.6 cm/sec. Mid ICA 47.8/10.0 cm/sec. Dist ICA 80.5/22.9 cm/sec. Dist ICA 56.6/16.0 cm/sec. Rt. ICA/CCA = 1.7. Lt. ICA/CCA = 56.6/66.4=0.9. Prox ECA 48.7/5.3 cm/sec. Prox ECA 61.0/9.1 cm/sec. Rt. Vert. 39.6/9.7 cm/sec. Lt. Vert. 36.9/9.2 cm/sec. Right Extracranial There is intimal thickening but no significant atherosclerotic plaque noted in the right common carotid artery. There is homogeneous, smooth atherosclerotic plaque noted in the right internal carotid artery. The right internal carotid artery is very tortuous. There is no significant atherosclerotic plaque noted in the right external carotid artery. Antegrade flow is noted in the right vertebral artery. Left Extracranial There is intimal thickening but no significant atherosclerotic plaque noted in the left common carotid artery. There is heterogeneous, smooth atherosclerotic plaque noted in the left internal carotid artery. The left internal carotid artery is very tortuous. There is no significant atherosclerotic plaque noted in the left external carotid artery. Antegrade flow is noted in the left vertebral artery. VL/Carotid Duplex Ultrasound Interpretation Summary Mild (<50%) stenosis right extracranial internal carotid. Mild (<50%) stenosis left extracranial internal carotid. Patent and antegrade vertebrals bilaterally. Ordering Physician: Lianne Peace Referring Physician: Tanya Contreras Performed By: Lara Mckeon, ERIKA, RVT
--- OUTSIDE RECORDS SUMMARY | 2023-05-11 06:47 | XMS RPT_ITS | CCD ---
Author Name Unknown Address [address] [place] [address] Organization [facility] Care Team Providers Care Pearler Name Role Phone Jose Luis Trevino DO Primary Care Provider JOSE LUIS TREVINO Attending Unavailable JOSE LUIS TREVINO Primary Care Unavailable BIBIANA TEMPLE Attending Unavailable JOSE LUIS TREVINO Primary Care Unavailable Allergies Allergy Classification Reported Allergen(s) Allergy Type Date of Onset Reaction(s) Facility (3 sources) HMG-CoA reductase inhibitor Drug Intolerance 12-16-2004 [facility] Medications Current Medications Medication Drug Class(es) Dates Sig (Normalized) Sig (Original) aspirin 81 mg oral tablet (3 sources) Platelet Aggregation Inhibitor, Nonsteroidal Anti-inflammatory Drug Aspirin 81 MG capsule Take by mouth. 0 Active atenolol 50 mg oral tablet (4 sources) beta-Adrenergic Ronnell Start: 06-27-2022 End: 07-03-2022 take 1 tablet by mouth once daily atenolol (Tenormin) 50 MG tablet Take 1 tablet (50 mg) by mouth daily. 90 tablet 1 07/03/2022 Active cholecalciferol 0.025 mg oral capsule (3 sources) Vitamin D cholecalciferol (Vitamin D-3) 25 MCG (1000 UT) capsule Take by mouth. 0 Active fluticasone propionate 0.05 mg/actuat metered dose nasal spray (3 sources) Corticosteroid Start: 08-07-2022 fluticasone (Flonase) 50 MCG/ACT nasal spray SPRAY 1 SPRAY BY NASAL ROUTE EVERY DAY 48 mL 11 08/07/2022 Active Completed/Discontinued Medications Medication Drug Class(es) Dates Sig (Normalized) Sig (Original) atorvastatin 10 mg oral tablet (1 source) HMG-CoA Reductase Inhibitor Start: 11-30-2021 End: 07-03-2022 take 1 tablet by mouth once daily in the evening atorvastatin (Lipitor) 10 MG tablet Take 10 mg by mouth every evening. 0 11/30/2021 07/03/2022 Discontinued (Therapy completed) indomethacin 50 mg oral capsule (1 source) Nonsteroidal Anti-inflammatory Drug Start: 01-26-2022 End: 07-03-2022 indomethacin (Indocin) 50 MG capsule Take 50 mg by mouth. 0 01/26/2022 07/03/2022 Discontinued (Therapy completed) meloxicam 15 mg oral tablet (1 source) Nonsteroidal Anti-inflammatory Drug Start: 04-28-2022 End: 07-03-2022 meloxicam (Mobic) 15 MG tablet Take by mouth. 0 04/28/2022 07/03/2022 Discontinued (Alternate therapy) Problems Active Problems Problem Classification Problem Date Documented Date Episodic/Chronic Disorders of lipid metabolism (6 sources) Mixed hypercholesterolemia and hypertriglyceridemia; Translations: [Mixed hyperlipidemia] Onset: 1 Chronic Diverticulosis and diverticulitis (3 sources) Diverticular disease; Translations: [Diverticulosis of intestine, part unspecified, without perforation or abscess without bleeding] Onset: 5 01-15-2022 Chronic Esophageal disorders (6 sources) Gastroesophageal reflux disease without esophagitis; Translations: [Gastro-esophageal reflux disease without esophagitis] Onset: 5 Chronic Essential hypertension (6 sources) Essential hypertension; Translations: [Essential (primary) hypertension] Onset: 5 Chronic Heart valve disorders (3 sources) Aortic stenosis, non-rheumatic ; Translations: [Nonrheumatic aortic (valve) stenosis] Onset: 1 01-15-2022 Chronic Osteoarthritis (12 sources) Primary gonarthrosis, bilateral; Translations: [Bilateral primary osteoarthritis of knee] Onset: 1 Resolved: 3 Chronic Other upper respiratory disease (3 sources) Allergic rhinitis; Translations: [Allergic rhinitis, unspecified] Onset: 5 01-15-2022 Chronic Residual codes; unclassified (2 sources) Peripheral edema; Translations: [Localized edema] 10-31-2022 Episodic Residual codes; unclassified (2 sources) Localized edema; Translations: [Localized edema] Onset: 3 Episodic Spondylosis; intervertebral disc disorders; other back problems (6 sources) Degeneration of lumbar intervertebral disc; Translations: [Other intervertebral disc degeneration, lumbar region] Onset: Chronic Past or Other Problems Problem Classification Problem Date Documented Date Episodic/Chronic Other connective tissue disease (3 sources) H/O: gout; Translations: [Personal history of other diseases of the musculoskeletal system and connective tissue] Onset: 01-01-2015 01-15-2022 Episodic Other non-epithelial cancer of skin (3 sources) History of malignant basal cell neoplasm of skin; Translations: [Personal history of other malignant neoplasm of skin] Onset: 01-01-2015 01-15-2022 Episodic Other screening for suspected conditions (not mental disorders or infectious disease) (3 sources) Patient encounter status; Translations: [Encounter for other screening for malignant neoplasm of breast] Onset: 07-03-2022 Episodic Residual codes; unclassified (3 sources) Other specified health status; Translations: [Other drug allergy] Onset: 01-03-2021 01-15-2022 Episodic Residual codes; unclassified (3 sources) Maternal history of diabetes mellitus; Translations: [Family history of diabetes mellitus] Onset: 01-07-2016 01-15-2022 Episodic Spondylosis; intervertebral disc disorders; other back problems (3 sources) Sciatica; Translations: [Other specified dorsopathies, lumbar region] Onset: 01-01-2015 01-15-2022 Episodic Results Test Name Value Interpretation Reference Range Facil ity Vital Signs Date Time Vital Sign Value Performing Clinician Karin chao 10-31-2022 11:25-0400 Diastolic blood pressure 88 mm[Hg] Bibiana Temple PA-C Work Phone: [employer] 10-31-2022 11:25-0400 Systolic blood pressure 160 mm[Hg] Bibiana Temple PA-C Work Phone: [employer] 10-31-2022 11:04-0400 Body height 160 cm Bibiana Temple PA-C Work Phone: [employer] 10-31-2022 11:04-0400 Body mass index (BMI) [Ratio] 34.19 kg/m2 Bibiana Temple PA-C Work Phone: [employer] 10-31-2022 11:04-0400 Body temperature 98.2 [degF] Bibiana Temple PA-C Work Phone: [employer] 10-31-2022 11:04-0400 Body weight 87.54 kg Bibiana Temple PA-C Work Phone: [facility] 10-31-2022 11:04-0400 Heart rate 61 /min Bibiana Temple PA-C Work Phone: [facility] 10-31-2022 11:04-0400 SaO2% (BldA) [Mass fraction] 97 % Bibiana BROWN-C Work Phone: [facility] 07-03-2022 08:30-0400 Diastolic blood pressure 84 mm[Hg] Jose Luis Trevino DO Work Phone: [facility] 07-03-2022 08:30-0400 Heart rate 68 /min Jose Luis Trevino DO Work Phone: [facility] 07-03-2022 08:30-0400 Systolic blood pressure 138 mm[Hg] Jose Luis Trevino DO Work Phone: [facility] 07-03-2022 07:53-0400 Body height 160 cm Jose Luis Trevino DO Work Phone: [facility] 07-03-2022 07:53-0400 Body mass index (BMI) [Ratio] 34.72 kg/m2 Jose Luis Trevino DO Work Phone: [facility] 07-03-2022 07:53-0400 Body temperature 97.11 [degF] Jose Luis Trevino DO Work Phone: [facility] 07-03-2022 07:53-0400 Body weight 88.91 kg Jose Luis Trevino DO Work Phone: [facility] 07-03-2022 07:53-0400 SaO2% (BldA) [Mass fraction] 97 % Jose Luis Trevino DO Work Phone: [facility] Encounters Encounter Date Encounter Type Care Provider Facility Start: 11-09-2022 Refill Jose Luis diamond DO Work Phone: [facility] Medicine Procedures Date Procedure Procedure Detail Performing Clinician Start: 01-02-2022 Lipid 1996 panel - S oz or Plasma Jose Luis Trevino DO Work Phone: Plan of Treatment Date Care Activity Detail Author Start: 01-02-2027 Lipid panel Lipid Panel [facility] Start: 01-01-2023 End: 01-01-2023 Patient encounter procedure [facility] Start: 12-01-2022 Influenza vaccination Influenza Vacc ine (#1) [facility] Start: 02-12-2012 Zoster Vaccines (2 of 3) Zoste r Vaccines (2 of 3) [facility] Start: 01-29-1963 DTaP/Tdap/Td Vaccine s (1 - Tdap) DTaP/Tdap/Td Vaccines (1 - Tdap) [facility] Start: 01-29-1962 Diabetes mellitus screening Diabetes Screening [facility] Start: 01-29-1962 Hepatitis C screening Hepatitis C Sc reening [facility] Start: 1956 Depression Screening Depression Scre ening [facility] Start: 1945 Hepatitis B Vaccines (1 of 3 - 3-dose series) Hepatitis B Vaccines (1 of 3 - 3-dose series) [facility] Start: 1945 Screening for osteoporosis Bone Density Scan [facility] Immunizations Immunization Date Immunization Notes Care Provider Fa cility 12-22-2021 Covid-19, Pfizer Biv alent Booster, (Age 12y+), Im, 30 Mcg/0e Jose Luis Trevino DO Work Phone: [facility] 12-21-2021 Influenza, High-dose Seasonal, Quadrivalent, Preservative Free Jose Luis Trevino DO Work Phone: [facility] 12-21-2021 influenza virus vacc ine, unspecified formulation Bibiana Temple PA-C Work Phone: [facility] 06-30-2021 Covid-19, Pfizer Gra y Top, Do Not Dilute, (Age 12 Y+), Im, L Jose Luis Trevino DO Work Phone: [facility] 01-05-2021 Pfizer SARS-CoV-2 Vaccination Jose Luis Trevino DO Work Phone: [facility] 01-03-2021 Influenza, High-dose Seasonal, Quadrivalent, Preservative Free Jose Luis Trevino DO Work Phone: [facility] 05-25-2020 Pfizer SARS-CoV-2 Vaccination Jose Luis Trevino DO Work Phone: [facility] 12-02-2019 influenza virus vacc ine, unspecified formulation Jose Luis Trevino DO Work Phone: [facility] 12-02-2019 Influenza, High-dose Seasonal, Quadrivalent, Preservative Free Jose Luis Trevino DO Work Phone: [facility] 12-02-2019 influenza, seasonal, injectable, preservative free Jose Luis Trevino DO Work Phone: [facility] 02-06-2019 influenza, high dose seasonal, preservative-free Jose Luis Gundersona DO Work Phone: [facility] 01-18-2018 influenza, high dose seasonal, preservative-free Jose Luis Trevino DO Work Phone: [facility] 01-12-2017 influenza, injectabl e, quadrivalent, contains preservative Jose Luis Trevino DO Work Phone: [facility] 07-14-2016 pneumococcal conjuga te vaccine, 13 valent Jose Luis Trevino DO Work Phone: [facility] 01-07-2016 influenza, injectabl e, quadrivalent, contains preservative Jose Luis Gundersona DO Work Phone: [facility] 01-01-2015 influenza virus vacc ine, unspecified formulation Jose Luis Trevino DO Work Phone: [facility] 12-19-2012 influenza virus vacc ine, unspecified formulation Jose Luis Trevino DO Work Phone: [facility] 12-18-2011 tetanus toxoid, unsp ecified formulation Jose Luis Trevino DO Work Phone: [facility] 12-18-2011 zoster vaccine, live Jose Luis Petrilla DO Work Phone: [facility] 09-24-2010 pneumococcal polysac charide vaccine, 23 valent Jose Luis Trevino DO Work Phone: [facility] Payers Date Payer Category Payer Medicare [employer] MEDICARE A DVANTAGE A[employer]NA MEDICARE [id number] 2022-Present [address] [place] [address] Medicare HMO [id number] 2022 Medicare [id number] Social History Date Type Detail Facility Tobacco smoking status NHIS Never smoked tobacco [facility] Start: 07-03-2022 End: 10-31-2022 Alcohol intake Current drinker of alcohol (finding) [facility] Start: 07-03-2022 End: 10-31-2022 Alcohol intake [facility] Start: 1945 Sex Assigned At Not on file [facility] Start: 06-23-2022 End: 10-31-2022 Exposure to SARS-CoV-2 (event) Not sure [facility] Start: 10-31-2022 Tobacco use panel [facility] Telephone encounter Note 11-09-2022 Telephone Encounter - Sandy Woods MA - 11/09/2022 9:25 AM EDT Note Date & Type Note Facility 11-09-2022 Telephone encounter Note Form atting of this note might be different from the original. Rx loaded Last apt 10/31/22 [facility] Note 11-09-2022 Telephone Encounter - Sandy Woods MA - 11/09/2022 9:25 AM EDTTelephone Encounter - Sherry Jozef - 11/09/2022 8:17 AM EDT Note Date & Type Note Facility 11-09-2022 Miscellaneous Notes Formattin g of this note might be different from the original. Rx loaded Last apt 10/31/22 Ordering provider: lola Date of last office visit: 10/31/2022 Date of next office visit: 01/01/2023 Updated/Validated preferred pharmacy: [facility] Patient instructed to contact the pharmacy prior to picking up the medication: no (1) Medication name: furosemide Medication dosage: 20 mg (Miligrams Monthly quantity needed: 7 How many day supply requestin days Medication route: oral (PO) Medication administration time(s): daily If taking medication PRN, reason for taking medication: N/A If this is a controlled substance do you receive this or any other controlled medication from any other doctor or facility: No Date of last refill (see medication tab): 10/31/2022 documented in this encounter [facility] Telephone encounter Note 11-09-2022 Telephone Encounter - Sherry Haskins - 11/09/2022 8:17 AM EDT Note Date & Type Note Facility 11-09-2022 Telephone encount er Note Ordering provider: lola Date of last office visit: 10/31/2022 Date of next office visit: 01/01/2023 Updated/Validated preferred pharmacy: [facility] Patient instructed to contact the pharmacy prior to picking up the medication: no (1) Medication name: furosemide Medication dosage: 20 mg (Miligrams Monthly quantity needed: 7 How many day supply requestin days Medication route: oral (PO) Medication administration time(s): daily If taking medication PRN, reason for taking medication: N/A If this is a controlled substance do you receive this or any other controlled medication from any other doctor or facility: No Date of last refill (see medication tab): 10/31/2022 [facility] History of Present illness Narrative 10-31-2022 Bibiana Temple PA-C - 10/31/2022 11:20 AM EDT Note Date & Type Note Facility 10-31-2022 History of Presen t illness Narrative Formatting of this note is different fro m the original. Images from the original note were not included. [facility] [address] [facility] [address] Dept: [phone] Dept Loc: [phone] Visit type: Established Patient Reason for Visit: Foot Swelling (Both feet) Assessment and Plan 1. Mild peripheral edema - furosemide (Lasix) 20 MG tablet; Take 1 tablet (20 mg) by mouth daily for 7 days., Starting Sun10/31/2022, Until Sun11/07/2022, Normal -Very mild nonpitting peripheral edema in the lower extremities. Good bounding pulses no signs of infection no calf pain swelling or tenderness to suggest a DVT she has negative Homans' sign. I think a lot of this is secondary to just activity being upright in the heat because of this we will treat it with a diuretic for 1 week and encouraged her to report any worsening of her symptoms. She does not have any current shortness of breath chest pain or any signs of congestive heart failure. All questions were answered the bedside patient was comfortable with the plan. Follow up if symptoms worsen or fail to improve, for Next scheduled follow-up. Subjective HPI this is a 77-year-old female with an underlying history of aortic valve stenosis, hypertension, GERD, H LD and chronic back pain who contacted the [facility] for next day appointment evaluation of legs and feet swelling. Patient reports her symptoms started roughly 3 weeks ago for started getting significant mount of swelling in both feet and ankles. She denies any fever chills rigors denies any associated pain with it other than the swelling associated with her feet and ankles. She denies any chest pain shortness breath palpitations or difficulty breathing. Just had colonoscopy and showed one polyp but otherwise no concerns. Review of Systems Constitutional: Negative for chills and fever. HENT: Negative for congestion and sore throat. Respiratory: Negative for cough and shortness of breath. Cardiovascular: Positive for leg swelling. Negative for chest pain. Gastrointestinal: Negative for abdominal pain, diarrhea, nausea and vomiting. Genitourinary: Negative for difficulty urinating, dysuria, frequency and urgency. Musculoskeletal: Negative for back pain. Neurological: Negative for dizziness and light-headedness. All other systems reviewed and are negative. Allergies Allergen Reactions Statins Other reaction(s): Intolerance, Other (See Comments) myalgias shooting pains in breast and back. Outpatient Medications Prior to Visit Medication Sig Dispense Refill Aspirin 81 MG capsule Take by mouth. atenolol (Tenormin) 50 MG tablet Take 1 tablet (50 mg) by mouth daily. 90 tablet 1 cholecalciferol (Vitamin D-3) 25 MCG (1000 UT) capsule Take by mouth. coenzyme Q-10 200 MG capsule Take by mouth. fluticasone (Flonase) 50 MCG/ACT nasal spray SPRAY 1 SPRAY BY NASAL ROUTE EVERY DAY 48 mL 11 lansoprazole (Prevacid) [address] capsule Take 1 capsule (30 mg) by mouth daily. 90 capsule 1 POTASSIUM PO Take by mouth. No facility-administered medications prior to visit. Past Medical History: Diagnosis Date Allergic rhinitis Aortic valve stenosis 2020 per exam Breast cancer screening 11/2019 per Skyla in past, Here now DDD (degenerative disc disease), lumbosacral 2017 Diverticular disease Essential hypertension 1997 Family history of diabetes mellitus in mother type 2 DM GERD (gastroesophageal reflux disease) History of basal cell carcinoma anterior chest ([facility]) History of colonoscopy with polypectomy 08/2014 Vanessa, repeat 2021- defers till 2022 History of gout 2011 toes Knee osteoarthritis per Dr. Dill Menopause 1996 pap and pelvic per Dr. Sanchez 11/13 Mixed hypercholesterolemia and hypertriglyceridemia 2007 intolerant of statin Nonrheumatic aortic valve stenosis 07/19/2018 Osteoarthritis of right hip 2019 S/P THR 02/[address] 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 Gary COLONOSCOPY W/ POLYPECTOMY 07/2014 Dr. Mendez small polyp-repeat 2021 DILATION AND CURETTAGE OF UTERUS 2003 HEMORRHOID SURGERY 2014 TOTAL HIP ARTHROPLASTY Right 02/2020 Dr. Dill TUBAL LIGATION Family History Problem Relation Name Age of Onset Coronary artery disease Brother Eugenio 71.00 stents Other ([id number]) Mother AV repl Diabetes Mother age 71 of CHF, RF Other ([id number]) Brother cherry 65.00 AAA repair Hypertension Brother cherry COPD Father age 68, smoker Prostate cancer Brother Eugenio Hypertension Sister Mey Palafox Kidney cancer Sister Mey Palafox 64.00 Prostate cancer Brother cherry Objective BP (!) 160/88 (BP Location: Left arm, Patient Position: Sitting, BP Cuff Size: Adult) Pulse 61 Temp 36.8 C (98.2 F) (Temporal) Ht 5' 3 (1.6 m) Wt 193 lb (87.5 kg) SpO2 97% BMI 34.19 kg/m Physical Exam Vitals reviewed. Constitutional: General: She is not in acute distress. Appearance: Normal appearance. She is not ill-appearing or toxic-appearing. Eyes: General: No scleral icterus. Conjunctiva/sclera: Conjunctivae normal. Pupils: Pupils are equal, round, and reactive to light. Cardiovascular: Rate and Rhythm: Normal rate and regular rhythm. Heart sounds: Murmur heard. Pulmonary: Effort: Pulmonary effort is normal. No respiratory distress. Breath sounds: Normal breath sounds. Musculoskeletal: Cervical back: Normal range of motion and neck supple. Right lower leg: Edema present. Left lower leg: Edema present. Comments: Mild +1 edema ankles non pitting Skin: General: Skin is warm and dry. Neurological: Mental Status: She is alert. Psychiatric: Mood and Affect: Mood normal. Data Reviewed and Summarized Labs: Imaging/Testing: Bibiana Temple PA-C 10/31/2022 Please note that portions of this note may have been completed with voice recognition software. Documentation reviewed prior to signing but minor errors in warehouse operations manager may have occurred. documented in this encounter [facility] History of Present illness Narrative 07-03-2022 Jose Luis Trevino DO - 07/03/2022 8:00 AM EDT Note Date & Type Note Facility 07-03-2022 History of Presen t illness Narrative Formatting of this note is different fro m the original. Images from the original note were not included. [facility] [address] [address] Visit type: Established Patient Reason for Visit: Follow-up (6 month med check) Assessment / Plan: Ashleigh Dunne was seen today for follow-up. Diagnoses and all orders for this visit: Essential hypertension (Primary) Mixed hypercholesterolemia and hypertriglyceridemia Gastroesophageal reflux disease without esophagitis Breast cancer screening other than mammogram Lumbar degenerative disc disease Primary osteoarthritis of both knees Other orders - lansoprazole (Prevacid) [address] capsule; Take 1 capsule (30 mg) by mouth daily. - atenolol (Tenormin) 50 MG tablet; Take 1 tablet (50 mg) by mouth daily. Subjective: Patient ID: Ashleigh Alvarez is a 77 y.o. female. HPI hypertensive patient presents for refill on Prevacid for acid reflux. Of note will be seeing GI this week for follow-up colonoscopy on polyps. Might get upper GI. No breakthrough heartburn. No relief with meloxicam for knee arthritis recommended by her orthopedist. Presently feels well. Of note recent vascular screen showed adequate carotids and SINAN--normal ABIs blood pressure excellent there Would like a breast exam but deferring mammogram. No breast complaints. No family history of breast cancer. Review of Systems she feels well. Vaccinations up-to-date. No recent earache sore throat or cough. Denies chest pain PND dyspnea orthopnea or edema. No heartburn or dysphagia. Bowels are regular. No melena or blood. History of remote polypectomy 8 years ago. Stable heartburn. Recently told by orthopedics she has mild bilateral knee arthritis. Rare sciatica. Stretches and workouts to help with back. Is very happy with her hip replacement. Allergies Allergen Reactions Statins Other reaction(s): Intolerance, Other (See Comments) myalgias shooting pains in breast and back. Current Outpatient Medications on File Prior to Visit Medication Sig Dispense Refill Aspirin 81 MG capsule Take by mouth. cholecalciferol (Vitamin D-3) 25 MCG (1000 UT) capsule Take by mouth. coenzyme Q-10 200 MG capsule Take by mouth. fluticasone (Flonase) 50 MCG/ACT nasal spray SPRAY 1 SPRAY BY NASAL ROUTE EVERY DAY POTASSIUM PO Take by mouth. [DISCONTINUED] atenolol (Tenormin) 50 MG tablet [DISCONTINUED] lansoprazole (Prevacid) [address] capsule Take 30 mg by mouth daily. [DISCONTINUED] meloxicam (Mobic) 15 MG tablet Take by mouth. [DISCONTINUED] atorvastatin (Lipitor) 10 MG tablet Take 10 mg by mouth every evening. [DISCONTINUED] indomethacin (Indocin) 50 MG capsule Take 50 mg by mouth. No current facility-administered medications on file prior to visit. Patient Active Problem List Diagnosis Lumbar degenerative disc disease Sciatica associated with disorder of lumbar spine Statin intolerance Mixed hypercholesterolemia and hypertriglyceridemia Family history of diabetes mellitus in mother Osteoarthritis of right hip Allergic rhinitis Essential hypertension GERD (gastroesophageal reflux disease) Diverticular disease History of basal cell carcinoma History of gout Nonrheumatic aortic valve stenosis Primary osteoarthritis of both knees Social History Tobacco Use Smoking status: Never Smokeless tobacco: Never Substance Use Topics Alcohol use: Yes Alcohol/week: 2.0 standard drinks Past Surgical History: Procedure Laterality Date BREAST BIOPSY 2009 CARPAL TUNNEL RELEASE Bilateral CATARACT EXTRACTION W/ INTRAOCULAR LENS IMPLANT Left 07/2018 Dr. Gary COLONOSCOPY W/ POLYPECTOMY 07/2014 Dr. Mendez small polyp-repeat 2021 DILATION AND CURETTAGE OF UTERUS 2002 HEMORRHOID SURGERY 2013 TOTAL HIP ARTHROPLASTY Right 02/2020 Dr. Dill TUBAL LIGATION Family History Problem Relation Name Age of Onset Coronary artery disease Brother Eugenio 71.00 stents Other ([id number]) Mother AV repl Diabetes Mother age 71 of CHF, RF Other ([id number]) Brother cherry 65.00 AAA repair Hypertension Brother cherry COPD Father age 68, smoker Prostate cancer Brother Eugenio Hypertension Sister Mey Palafox Kidney cancer Sister Mey Palafox 64.00 Prostate cancer Brother cherry Objective: BP 138/84 Pulse 68 Temp 36.2 C (97.1 F) (Temporal) Ht 5' 3 (1.6 m) Wt 196 lb (88.9 kg) SpO2 97% BMI 34.72 kg/m Physical Exam The physical exam is generally normal. Patient appears well, alert and oriented x 3, pleasant, cooperative. Vitals are as noted. No carotid bruits. Neck supple, no abnormal adenopathy, thyroid lesions or masses. Ears, nose and throat are normal without acute findings. Lungs are clear to auscultation. Heart is regular, without murmurs, gallops or ectopy. Abdomen is soft, non tender, without masses, hepatosplenomegaly, or bruits. Normal BS evident. Extremities are normal without edema. Peripheral pulses are fair. No worrisome skin lesions. Screening neurological exam is normal without focal deficits. No breast masses, nipple discharge, skin changes, or axillary adenopathy documented in this encounter [facility] Evaluation note Note Date & Type Note Facility documented in this encounter [facility] Evaluation note Note Date & Type Note Facility documented in this encounter [facility] Evaluation note Note Date & Type Note Facility documented in this encounter [facility] Summary Purpose Family History No Family History Records Found Advance Directives No Advanced Directives Records Found Additional Source Comments Reason for Visit (unrecogniz ed section and content) Reason Comments Foot Swelling Both feet Reason Onset Date Comments Med Refill 11/09/2022 Care Teams (unrecognized sec tion and content) Pearler Relationship Specialty Start Date End Date Jose Luis Trevino DO [address] [place] [address] PCP - General 09/30/16 Pearler Relationship Specialty Start Date End Date Jose Luis Trevino DO [address] [place] [address] PCP - General 09/30/16 INFORMATION SOURCE (unrecogn ized section and content) FOR RECORDS PERTAINING TO PATIENTS WHO ARE OR HAVE BEEN ENROLLED IN A CHEMICAL DEPENDENCY/SUBSTANCEABUSE PROGRAM, SOME INFORMATION MAY BE OMITTED. This clinical summary was aggregated from multiple sources. Caution should be exercised in using it in the provision of clinical care. This summary normalizes information from multiple sources, and as a consequence, information in this document may materially change the coding, format and clinical context of patient data. In addition, data may be omitted in some cases. CLINICAL DECISIONS SHOULD BE BASED ON THE PRIMARY CLINICAL RECORDS. [facility]. provides no warranty or guarantee of the accuracy or completeness of information in this document.
--- NOTE | 2023-05-11 17:05 | STRESSREP_ITS ---
Stress Test Report Date: 05/11/2023 Procedure: Pharmacologic stress nuclear imaging study Indications: Dyspnea on exertion Consent: Per the patient Procedure: The patient underwent pharmacologic (Regadenoson 0.4mg ) evaluation with a peak heart rate of 90 beats per minute (63%predicted maximal heart rate) and a peak blood pressure of 142/90 mmHg. The baseline ECG demonstrated sinus rhythm. The peak pharmacologic ECG demonstrated no ischemic changes. There were no cardiac dysrhythmias pretest, during pharmacologic infusion, or recovery. There was no complaint of chest discomfort during pharmacologic infusion or recovery. The patient was injected with 14.5 millicuries of technetium 99m Cardiolite and subsequently rest SPECT Cardiolite nuclear imaging was obtained in the horizontal long, vertical long, and short axis views. The patient underwent pharmacologic (Regadenoson) evaluation. The patient was injected with 44 point millicuries of technetium 99m Cardiolite and subsequently stress SPECT Cardiolite nuclear imaging was obtained in the horizontal long, vertical long, and short axis views. A gated Cardiolite study at peak stress was obtained. The examination was stopped secondary to completion of protocol. Rest and stress SPECT Cardiolite nuclear imaging status post realignment, normalization, and attenuation correction demonstrate no fixed or reversible perfusion defects. There is end systolic thickening and brightening. The gated Cardiolite study demonstrates myocardial thickening and inward wall motion. The reported LVEF is 82%. Impression: 1. Pharmacologic (Regadenoson) evaluation 2. Peak pharmacologic ECG with no diagnostic changes. 3. There were no cardiac dysrhythmias pretest, during pharmacologic infusion, or recovery. 5. Rest and stress SPECT Cardiolite nuclear imaging demonstrate relative uniform tracer uptake and myocardial perfusion appearing within normal limits. 6. The gated Cardiolite study reports an LVEF of 82%. This note was generated with [employer] software. It may contain incorrect words, spelling, and punctuation that were not noted in checking the note before signing.
== END | disposition home or self-care (01) ==
LOC: CVS 06:43
PROVIDERS: PCP Family Medicine; Referring Provider Internal Medicine Cardiovascular Disease; Visit Provider Internal Medicine Cardiovascular Disease
DX: R06.09 Other forms of dyspnea (principal); I34.0 Nonrheumatic mitral (valve) insufficiency; I35.0 Nonrheumatic aortic (valve) stenosis; I11.9 Hypertensive heart disease without heart failure; R93.1 Abnormal findings on diagnostic imaging of heart and coronary circulation; R42 Dizziness and giddiness
CPT/HCPCS: 78452; 93017; 93880; A9500; A4216; J2785

== ENCOUNTER → 2023-11-26 | Outpatient (CLI) | payer MEDICARE, SELFPAY ==
[2023-11-26 12:17] LABS: Absolute Lymphocyte Count 1.63 X10^3/uL (0.83-4.51); Absolute Neutrophil Count 3.8 X10^3/uL (2.0-7.7); Basophil# 0.05 X10^3/uL; Basophil% 0.8 % (0-1); Eosinophil# 0.13 X10^3/uL; Eosinophils% 2.2 % (0-5); Hemoglobin 13.7 g/dL (12.0-15.0); Lymphocyte # 1.63 X10^3/ul (0.83-4.51); Mean Corp Hgb Conc 32.6 g/dL (32-36); Mean Corpuscular Hgb 29.8 pg (27.0-32.0); Mean Corpuscular Volume 91.5 fL (81-99); Mean Platelet Vol. 10.9 fl (6.2-12.0); Monocyte# 0.43 X10^3/uL; Monocyte% 7.1 % (0-10); NRBC Flagged by Analyzer 0 % (0-5); Neutrophil # 3.79 X10^3/uL (2.7-7.7); Neutrophil % 62.7 % (47-70); Platelet Count 246 K/mm3 (150-450); RBC Distribution Width CV 13.5 % (11.6-14.6); RBC Distribution Width SD 45.5 fl (35.1-43.9); Red Blood Count 4.59 M/mm3 (4.2-5.4)
[2023-11-26 12:34] LABS: AST(SGOT) 15 U/L (15-37); Alanine Aminotransfer ALT/SGPT 19 U/L (13-56); Albumin, Serum 3.4 g/dL (3.2-5.0); Alkaline Phosphatase 89 U/L (45-117); Anion Gap 5 (5-15); BUN 17 mg/dL (7-18); BUN/Creat Ratio 18.5 RATIO (10-20); Calcium,Total 9.2 mg/dL (8.5-10.1); Chloride 105 mmol/L (98-107); Cholesterol 250 mg/dL (200); Creatinine, Serum 0.92 mg/dL (0.55-1.02); EST Glomerular Filtration Rate 62 mL/min (>60); Est Glom Filt Rate - Afr Amer 76 mL/min (>60); Globulin 3.3 g/dL (2.2-4.2); Glucose 91 mg/dL (74-106); High Density Lipoprotein 51 mg/dL; Potassium 4.1 mmol/L (3.5-5.1); Protein, Total 6.7 g/dL (6.4-8.2); Sodium Level 138 mmol/L (136-145); Triglycerides 189 mg/dL; Very Low Density Lipoprotein 38 mg/dL (5-40)
== END | disposition home or self-care (01) ==
LOC: BFHLAB 08:32
PROVIDERS: PCP Family Medicine; Referring Provider Family Medicine; Visit Provider Family Medicine
DX: Z00.00 Encounter for general adult medical examination without abnormal findings (principal); E78.5 Hyperlipidemia, unspecified; I10 Essential (primary) hypertension
CPT/HCPCS: 36415; 80053; 80061; 85025

== ENCOUNTER → 2024-05-07 | Outpatient (CLI) | payer MEDICARE, SELFPAY ==
--- NOTE | 2024-05-07 13:44 | ECHOD_ITS ---
Reason For Study: Murmur Procedure This was a 2D Doppler, Color Flow transthoracic echocardiogram. Exam performed in department. Left Ventricle Normal LV size. Mild concentric left ventricular hypertrophy. Sigmoid septum. The left ventricular ejection fraction is 65 %. Stage 1 diastolic dysfunction. Right Ventricle Normal right ventricle. Atria The left atrium is mildly enlarged. Normal right atrium. Mitral Valve Severe mitral annular calcification. Mild-Moderate (1-2+) mitral valve insufficiency. Tricuspid Valve Mild tricuspid valve insufficiency. Normal pulmonary artery pressure. Aortic Valve Mildly thickened aortic valve leaflets. Mild aortic valve stenosis. Mean peak gradient 14 mmHg. Pulmonic Valve The pulmonic valve is not well visualized. Great Vessels Normal sized aortic root. Pericardium/Pleural No pericardial effusion. MMode/2D Measurements & Calculations LVIDd: 3.7 cm IVSd: 1.2 cm LVOT diam: 2.0 cm LVIDs: 2.4 cm LVPWd: 0.98 cm LVOT area: 3.2 cm2 RVDd: 4.0 cm FS: 35.4 % _ Ao root diam: 3.5 cm LAV(MOD-bp): 71.3 ml LVAd ap4: 17.5 cm2 LAV(MOD-bp) Indexed: 39.8 ml/m2 LVLd ap4: 6.0 cm LAV(MOD-sp2): 73.6 ml EDV(MOD- sp4): 42.1 ml LAV(MOD-sp4): 70.3 ml EDV(sp4- el): 43.8 ml LVAs ap4: 9.8 cm2 LVLs ap4: 5.0 cm ESV(MOD- sp4): 16.8 ml ESV(sp4- el): 16.2 ml EF(MOD- sp4): 60.2 % EF(sp4-el): 63.1 % _ SV(MOD-sp4): 25.4 ml SV(sp4-el): 27.7 ml Ao sinus diam: 3.1 cm SI(MOD-sp4): 14.2 ml/m2 _ Ao ST Junction: 2.3 cm LA A4 area: 21.8 cm2 LA dimension(2D): 4.1 cm _ TAPSE: 1.9 cm RA A4 area: 13.9 cm2 Time Measurements MV dec time: 0.39 sec Doppler Measurements & Calculations MV E max jose: 123.2 cm/sec Lat Peak E' Jose: 3.4 cm/sec Med Peak E' Jose: 3.9 cm/sec MV A max jose: 146.3 cm/sec E/E' lat: 35.9 E/E' med: 31.6 MV E/A: 0.84 _ MV V2 max: 162.2 cm/sec MV P1/2t max jose: 122.4 cm/sec Ao V2 max: 252.4 cm/sec MV max P.5 mmHg MV P1/2t: 118.7 msec Ao max P.5 mmHg MV V2 mean: 88.7 cm/sec MV dec slope: 302.0 cm/sec2 Ao V2 mean: 175.4 cm/sec MV mean P.6 mmHg Ao mean P.0 mmHg MV V2 VTI: 46.1 cm MVA(P1/2t): 1.9 cm2 Ao V2 VTI: 64.0 cm MVA(VTI): 1.9 cm2 AV (velocity ratio): 0.43 PRITESH(I,D): 1.4 cm2 PRITESH(V,D): 1.5 cm2 _ LV V1 max: 118.1 cm/sec SV(LVOT): 87.8 ml PA V2 max: 90.6 cm/sec LV V1 max P.6 mmHg PA V2 mean: 65.3 cm/sec LV V1 mean P.1 mmHg LV V1 mean: 83.2 cm/sec LV V1 VTI: 27.5 cm _ TR max jose: 220.6 cm/sec TR max P.5 mmHg ECHO/Echo Complete Interpretation Summary Mild concentric left ventricular hypertrophy. The left ventricular ejection fraction is 65 %. Stage 1 diastolic dysfunction. The left atrium is mildly enlarged. Mild-Moderate (1-2+) mitral valve insufficiency. Mild tricuspid valve insufficiency. Mildly thickened aortic valve leaflets. Mild aortic valve stenosis. Mean peak g radient 14 mmHg. Ordering Physician: Lianne Peace Referring Physician: Lianne Peace Performed By: Michael Ro RCS
== END | disposition home or self-care (01) ==
PROVIDERS: PCP Family Medicine; Referring Provider Internal Medicine Cardiovascular Disease; Visit Provider Internal Medicine Cardiovascular Disease
DX: I34.0 Nonrheumatic mitral (valve) insufficiency (principal); R53.83 Other fatigue; R01.1 Cardiac murmur, unspecified; I08.0 Rheumatic disorders of both mitral and aortic valves; I35.0 Nonrheumatic aortic (valve) stenosis
CPT/HCPCS: 93306

== ENCOUNTER → 2025-01-01 | Outpatient (CLI) | payer MEDICARE, SELFPAY ==
[2025-01-01 10:21] LABS: Hematocrit 40.9 % (37-47); Hemoglobin 13.5 g/dL (12.0-15.0); Immature Granulocytes Count 0.020 X10^3/uL (0.0-0.0); Mean Corp Hgb Conc 33.0 g/dL (32-36); Mean Corpuscular Volume 89.5 fL (81-99); Mean Platelet Vol. 10.1 fl (6.2-12.0); NRBC Flagged by Analyzer 0 % (0-5); Platelet Count 248 K/mm3 (150-450); RBC Distribution Width CV 13.0 % (11.6-14.6); RBC Distribution Width SD 42.4 fl (35.1-43.9); Red Blood Count 4.57 M/mm3 (4.2-5.4); White Blood Count 6.0 K/mm3 (4.4-11.0)
[2025-01-01 10:55] LABS: AST(SGOT) 20 U/L (<=31); Alanine Aminotransfer ALT/SGPT 13 U/L (<=34); Albumin, Serum 3.9 g/dL (3.4-4.8); Alkaline Phosphatase 74 U/L (35-104); Anion Gap 13 (5-15); BUN 19 mg/dL (4-19); BUN/Creat Ratio 20.9 RATIO (10-20); Calcium,Total 9.2 mg/dL (7.6-11.0); Carbon Dioxide 23.7 mmol/L (21.0-32.0); Chloride 101 mmol/L (98-108); Cholesterol 246 mg/dL (<=200); Globulin 2.9 g/dL (2.2-4.2); Glucose 99 mg/dL (70-99); Low Density Lipoprotein Calc. 163 mg/dL; Potassium 4.0 mmol/L (3.3-5.1); Triglycerides 147 mg/dL; Very Low Density Lipoprotein 29 mg/dL (5-40); cholesterol:hdl ratio screen 4.60
== END | disposition home or self-care (01) ==
LOC: MTLAB 08:06
PROVIDERS: PCP Family Medicine; Referring Provider Family Medicine; Visit Provider Family Medicine
DX: Z00.00 Encounter for general adult medical examination without abnormal findings (principal); I10 Essential (primary) hypertension; E78.5 Hyperlipidemia, unspecified
CPT/HCPCS: 36415; 80053; 80061; 85025

== ENCOUNTER 2025-03-21 22:06 | Emergency (ER) | payer MEDICARE, SELFPAY ==
[2025-03-21] VITALS (9 sets, daily range): BP systolic 147–188; BP diastolic 64–89; PULSE 69–88; RESP 10–22; TEMP 36.6; O2SAT 97–99; BMI 30.1
--- NOTE | 2025-03-21 22:10 | EKG12_ITS ---
Test Reason : PALPITATIONS Blood Pressure : */* mmHG Vent. Rate : 89 BPM Atrial Rate : 89 BPM P-R Int : 182 ms QRS Dur : 134 ms QT Int : 418 ms P-R-T Axes : 48 -29 62 degrees QTcB Int : 508 ms Normal sinus rhythm Left ventricular hypertrophy with QRS widening and repolarization abnormality ( R in aVL , Osito product ) Abnormal ECG Confirmed by Luis A Corea (Shala), assistant film editor CASSIE SALEH ([id number]) on 03/24/2025 11:07:24 AM Also confirmed by Luis A Corea ([id number]), assistant film editor CASSIE SALEH ([id number]) on 03/25/2025 11:13:41 AM Referred By: Confirmed By: Luis A Corea
--- NOTE | 2025-03-21 22:17 | EDS_ITS ---
HPI History of Present Illness Chief Complaint: Palpitations Informant: patient Onset/Context/Timing Onset: Today Context: Sudden Onset Timing: Waxes and wanes Quality: Lightheaded, indigestion Location: Generalized Worsened by: Walking Relieved by: Nothing Narrative Narrative: Patient presents with palpitations that began tonight. Patient states she felt lightheaded and out of my body. Patient denies any near syncopal feeling. Patient states she felt like she had some indigestion. Patient states this is worse when she got up and walked to the bathroom. Patient states she checked her pulse and it was 40. Patient states her blood pressure is 133/66 at that time. Patient admits to some nausea but denies any vomiting. Patient denies any recent travel or recent surgery. [facility] Medical History Aortic valve stenosis Mitral regurgitation Hypertensive heart disease Mild peripheral edema Transient global amnesia Statin intolerance Osteoarthritis DDD (degenerative disc disease), lumbosacral Mitral insufficiency and aortic stenosis Fatigue Heart murmur Skin cancer, basal cell GERD (gastroesophageal reflux disease) HTN (hypertension) Hyperlipidemia Skin lesion of foot Skin lesion of right leg URI, acute Hemorrhoids Home Medications ?Medication ?Instructions ?Recorded ?Last Taken ?Type cholecalciferol (vitamin D3) 25 1,000 unit PO DAILY shine pplement 01/21/20 Unknown History mcg (1,000 unit) tablet fluticasone propionate 50 1 spray intranasal DAILY PRN 01/21/20 Unknown History mcg/actuation nasal Allergies spray,suspension lansoprazole 30 mg capsule,delayed 30 mg PO DAILY refl ux 01/21/20 02/04/20 06:30 History release aspirin 81 mg tablet,delayed 81 mg PO DAILY 03/27/23 U nknown History release atenolol 50 mg tablet 25 mg PO DAILY bp 03/27/23 U nknown History furosemide 20 mg tablet 10 mg PO DAILY 03/27/23 Unkn own History ibuprofen 200 mg tablet (Advil) 200 mg PO Q6H PRN 03/03 09/22 Unknown History potassium gluconate 595 mg (99 mg) 595 mg PO DAILY Unknown History tablet coenzyme Q10 100 mg capsule 300 mg PO DAILY 04/18/23 U nknown History losartan 25 mg tablet 25 mg PO DAILY #90 tabs 06/24 Unknown Rx amoxicillin 500 mg tablet 500 mg PO TID #30 tabs 09/30 Unknown Rx Allergy/AdvReac Type Severity Reaction Status Date / Time [id number] Reductase AdvReac Intermediate myalgias Verified 03/21/25 22:08 Inhibitor Family History Sister Cancer kidney Heart disease valve Brother Cancer prostate CAD (coronary artery disease) stents Mother , 71 Hypertension Heart disease valve Diabetes CHF (congestive heart failure) Father , 68-smoker COPD (chronic obstructive pulmonary disease) Brother AAA (abdominal aortic aneurysm) Hypertension Cancer prostate Surgical History Hx of dilation and curettage (~2002) Hx of breast biopsy (~2008) History of right hip replacement (~2019) Hx of cataract surgery (~2018) Hx of carpal tunnel repair (~1998) Hx of tubal ligation (~1974) Hx of tonsillectomy (~1967) History of foot surgery (~1997) Social History Smoking Status: Never smoker alcohol intake: current alcohol intake frequency: a few times a week substance use type: does not use caffeine: Yes Type: coffee Number of servings: 2 ROS ROS ED Constitutional Constitutional ED: Denies chills or fever(s) Eyes Eyes: Denies blurry vision or change in vision ENT ENT ED: Denies rhinorrhea or sore throat Cardiovascular Cardiovascular: Reports palpitations and racing heartbeat; Denies chest pain Respiratory/Chest Respiratory/Chest: Denies cough or dyspnea Gastrointestinal Gastrointestinal: Reports nausea; Denies vomiting Genitourinary Genitourinary ED: Denies dysuria or hematuria Musculoskeletal Musculoskeletal: Denies back pain or neck pain Integumentary Denies abscess or rash Neurologic Neurologic: Denies headache(s) or weakness Allergic/Immunologic Allergic/Immunologic ED: Denies mouth swelling or urticaria EXAM Physical Exam Const Vital Signs: 03/21/25 22:07 03/21/25 22:34 03/21/25 22:40 Temperature 98 F Temperature Source Oral Pulse Rate 88 Respiratory Rate 16 Respiratory Effort Blood Pressure 188/89 H 147/74 H Blood Pressure Mean 122 95 Pulse Ox 98 97 Oxygen Delivery Method Room Air Room Air 03/21/25 22:42 03/21/25 22:47 03/21/25 23:00 Temperature Temperature Source Pulse Rate 78 Respiratory Rate 16 19 H Respiratory Effort Normal Non-Labored Blood Pressure 153/67 H Blood Pressure Mean 93 Pulse Ox 99 97 Oxygen Delivery Method 03/21/25 23:06 03/21/25 23:27 03/21/25 23:30 Temperature Temperature Source Pulse Rate 79 73 69 Respiratory Rate 19 H 22 H 13 Respiratory Effort Blood Pressure 153/67 H Blood Pressure Mean 95 Pulse Ox 97 98 97 Oxygen Delivery Method Room Air 03/21/25 23:31 03/21/25 23:45 03/22/25 00:00 Temperature Temperature Source Pulse Rate 75 74 Respiratory Rate 16 10 L Respiratory Effort Blood Pressure 150/64 H 158/68 H 176/84 H Blood Pressure Mean 89 95 109 Pulse Ox 98 98 Oxygen Delivery Method Positive well nourished and well developed Constitutional Narrative: BMI is 30.1. General Appearance ED: well developed and NAD HEENT Reports moist mucous membranes Neck supple and no JVD Resp normal respiratory effort and clear to auscultation bilaterally Cardio regular rate and regular rhythm GI non-tender and non-distended Palpation: soft Extremity normal to inspection General Extremety ED: Negative for edema General Extremity: Negative for edema Neuro oriented x3, CN's II-XII intact bilaterally and no sensory deficits noted Sensorium / Orientation: alert Motor Exam: strength 5/5 throughout Psych mental status grossly normal MDM MDM MDM Narrative Medical decision making narrative: Differential diagnosis includes cardiac dysrhythmia, cardiac ischemia, pneumonia, bronchitis, electrolyte abnormality, and anxiety. EKG will be obtained to assess for cardiac dysrhythmia and cardiac ischemia. Chest x-ray will be obtained to assess for pneumonia or bronchitis. CBC will be obtained to assess for leukocytosis and anemia. Basic metabolic profile will be obtained to assess for electrolyte abnormality and renal function. High-sensitivity troponin will be obtained to assess for cardiac ischemia. 2-hour repeat high- sensitivity troponin will be obtained to assess for ongoing cardiac ischemia. Lab Data Attestation: I reviewed the patient's lab results. Lab results narrative: CBC was reviewed and was within normal limits. Basic metabolic profile was reviewed. BUN was slightly elevated at 25. Leukos was slightly elevated at 117. The remainder is within normal limits. Initial high-sensitivity troponin was reviewed and was slightly elevated at 16. Labs: Laboratory Results - last 24 hr 03/21/25 22:31 WBC 6.4 RBC 4.50 Hgb 13.4 Hct 39.9 MCV 88.7 MCH 29.8 MCHC 33.6 RDW Std Deviation 42.5 RDW Coeff of Nikole 13.0 Plt Count 236 MPV 9.5 Immature Gran % (Auto) 0.300 Neut % (Auto) 52.4 Lymph % (Auto) 31.7 Mccreary % (Auto) 11.4 H Eos % (Auto) 3.3 Baso % (Auto) 0.9 Absolute Neuts (auto) 3.4 Absolute Lymphs (auto) 2.03 Nucleated RBC % 0 Sodium 138 Potassium 3.5 Chloride 102 Carbon Dioxide 24.2 Anion Gap 12 BUN 25 H Creatinine 0.87 Estim Creat Clear Calc 49.88 L Est GFR (MDRD) Non-Af 67 BUN/Creatinine Ratio 28.0 H Glucose 117 H Calcium 9.2 Troponin T High Sens 16 H Radiography Chest X-Ray - ED: 2 View, Read by ED Physician, Read by Radiologist and No Acute Disease Diagnostic Testing: Clinical Impression(s) from Imaging Studies Chest X-Ray 03/21/25 22:29 IMPRESSION: No focal consolidation. Mild pulmonary vascular congestion. Reading Location: [facility] and lateral chest x-ray was obtained. There are 2 views. On my independent interpretation, lung wills are clear. There is normal cardiac silhouette. Bony thorax is normal. There is no acute process noted. Radiologist also interpreted the x-ray and agrees. EKG Initial EKG: Attestation: I personally reviewed and interpreted this EKG as follows: Interpretation: Sinus Rhythm (89) and Non-Specific ST Changes Comments: EKG was obtained. On my independent interpretation, shows normal sinus rhythm with a rate of 89. AR interval was normal at 182 ms. QRS interval was slightly prolonged at 134 ms. QTc interval was slightly prolonged at 508 ms. There is left axis deviation at -29. There is left ventricular hypertrophy noted. There are nonspecific ST-T wave changes noted. Prior EKG tracings: available for review Prior: Changed (Compared to EKG dated 04/18/2023, the widening of the QRS is slightly prolonged compared to that. There are no acute ST or T wave changes compared to previous EKG.) Treatment and Re-Evaluation :: Patient was given aspirin here. Patient is feeling better on reevaluation. Patient was advised of her findings. Patient was advised that if her delta troponin increases by more than 6, I would recommend admission to the hospital. Patient states she feels better and wants to go home. Care of the patient will be turned over to the oncoming physician pending repeat troponin. Discharge Plan Triage Chief Complaint: Palpitations ED Provider: Geoffrey Zuleta Dx/Rx/DC Orders Clinical Impression: Heart palpitations, HTN (hypertension) Instructions: ED Heart Palpitations Prescriptions: No Action furosemide 20 mg tablet 10 mg PO DAILY aspirin 81 mg tablet,delayed release (DR/EC) 81 mg PO DAILY potassium gluconate 595 mg (99 mg) tablet 595 mg PO DAILY ibuprofen [Advil] 200 mg tablet 200 mg PO Q6H PRN coenzyme Q10 100 mg capsule 300 mg PO DAILY amoxicillin 500 mg tablet 500 mg PO TID Qty: 30 0RF atenolol 50 mg tablet 25 mg PO DAILY lansoprazole 30 MG capsule 30 mg PO DAILY cholecalciferol (vitamin D3) 1,000 UNIT tablet 1,000 unit PO DAILY fluticasone propionate 16 GM spray,suspension 1 spray INTRANASAL DAILY PRN (Reason: Allergies) losartan 25 mg tablet 25 mg PO DAILY Qty: 90 3RF Primary Care Provider: Sheila Contreras Referrals: Sheila Contreras MD [Primary Care Provider, Family Practice] - 3-5 Days Print Language: Lithuanian
--- NOTE | 2025-03-21 22:29 | RAD_ITS ---
PROCEDURE: CHEST PA AND LATERAL 03/21/2025 REASON FOR EXAM: CHEST PAIN TECHNIQUE: Procedure Code: RADCXR Modality: DX Procedure: CHEST PA AND LATERAL FINDINGS: No focal consolidation. Mild pulmonary vascular congestion. no pleural effusion or pneumothorax. Cardiac silhouette is within normal limits. No acute fractures. RAD/Chest PA and Lateral IMPRESSION: No focal consolidation. Mild pulmonary vascular congestion. Reading Location: [facility]
[2025-03-21 22:43] LABS: Hematocrit 39.9 % (37-47); Hemoglobin 13.4 g/dL (12.0-15.0); Immature Granulocytes Count 0.020 X10^3/uL (0.0-0.0); Mean Corp Hgb Conc 33.6 g/dL (32-36); Mean Corpuscular Volume 88.7 fL (81-99); Mean Platelet Vol. 9.5 fl (6.2-12.0); NRBC Flagged by Analyzer 0 % (0-5); Platelet Count 236 K/mm3 (150-450); RBC Distribution Width CV 13.0 % (11.6-14.6); RBC Distribution Width SD 42.5 fl (35.1-43.9); Red Blood Count 4.50 M/mm3 (4.2-5.4); White Blood Count 6.4 K/mm3 (4.4-11.0)
--- OUTSIDE RECORDS SUMMARY | 2025-03-21 22:45 | XMS RPT_ITS | CCD ---
Author Organization [facility] Care Team Providers Care Chronic Care Nurse Name Role Phone Jose Luis Trevino DO Primary Care Provider JOSE LUIS TREVINO Attending Unavailable JOSE LUIS TREVINO Primary Care Unavailable BIBIANA TEMPLE Attending Unavailable JOSE LUIS TREVINO Primary Care Unavailable Dr. Sheila Contreras Primary Care Provider [phone] Dr. Lianne Peace Attending Provider Dr. Sheila Contreras Referring Provider Dr. Geoffrey Lou Attending Provider Dr. Lianne Peace Referring Provider Dr. Lianne Peace Other Provider Vernon HAMM, ESTIVEN Ramirez Attending Provider Dr. Sheila Contreras MD Primary Care Provider Dr. Sheila Contreras MD Referring Provider [phone] Rojelio Shultz Attending Provider Lianne Peace Attending Unavailable Lianne Peace Referring Unavailable Sheila Contreras Primary Care Unavailable Sheila Contreras Primary Care Unavailable Sheila Contreras Attending Unavailable Sheila Contreras Referring Unavailable Lianne Peace Attending Unavailable Sheila Contreras Primary Care Unavailable Sheila Contreras Referring Unavailable Lianne Peace Attending Unavailable Sheila Contreras Primary Care Unavailable Sheila Contreras Primary Care Unavailable Rojelio Shultz Attending Unavailable Sheila Contreras Referring Unavailable Allergies Allergy Classification Reported Allergen(s) Allergy Type Date of Onset Reaction(s) [facility] Intolerance 5 [facility] (2 sources) Fbjhogh-Bya-Ggf Reductase Inhibitor Propensity to adverse reactions 4 myalgias [facility] Comment on above: shooting pains in br east and back (1 source) Mbketjq-Kci-Mcg Reductase Inhibitor Drug allergy (disorder) 5 [facility] Rep[facility] Medications Current Medications Medication Drug Class(es) Dates Sig (Normalized) Sig (Original) amoxicillin 500 mg oral tablet (5 sources) Penicillin-class Antibacterial Start: 09-30-2024 take 1 tablet by mouth three times daily Amoxicillin 500 mg tablet Active 500 mg PO THREE TIMES A DAY 30 0 September 30, 2024 12:00am Start: 10-18-2020 End: 03-27-2023 Amoxicillin 500 mg capsule D iscontinued NMA PO October 18, 2020 12:00am March 27, 2023 12:00pm Start: 10-18-2020 End: 03-27-2023 Amoxicillin Discontinued CAP PO October 17, 2020 11:00pm March 27, 2023 11:00am aspirin 81 mg delayed release oral tablet (13 sources) Platelet Aggregation Inhibitor, Nonsteroidal Anti-inflammatory Drug Start: 03-27-2023 take 1 tablet by mouth once daily Aspirin 81 mg tablet,delayed release (DR/EC) Active 81 mg PO DAILY March 27, 2023 1:00am Start: 02-05-2020 End: 03-06-2020 take 1 tablet by mouth twice daily at mealtime Aspirin 81 MG tablet,chewable Discontinued 81 mg PO TWICE DAILY WITH MEALS 30 0 February 05, 2020 1:00am March 05, 2020 1:00am March 06, 2020 1:03am Take 81 mg aspirin twice daily for 4 weeks postoperatively for DVT prophylaxis Start: 08-07-2013 End: 02-05-2020 take 1 tablet by mouth once daily Aspirin 81 MG tablet Discontinued 81 mg PO DAILY@00 August 07, 2013 12:00am February 05, 2020 10:25am heart [facility] Aspirin 81 MG ca psule Take by mouth. 0 Active atenolol 50 mg oral tablet (10 sources) beta-Adrenergic Ronnell Start: 03-27-2023 Atenol ol 50 mg tablet Active 25 mg PO DAILY March 27, 2023 12:01pm bp Start: 03-27-2023 take 25 mg by mouth once daily Atenolol Active 25 MG PO DAILY March 27, 2023 11:01am Start: 08-07-2013 End: 03-27-2023 take 1 tablet by mouth once daily Atenolol 50 MG tablet Discontinued 50 mg PO DAILY August 07, 2013 12:00am March 27, 2023 12:04pm bp cholecalciferol 0.025 mg oral tablet (11 sources) Vitamin D Start: 01-21-2020 take 1 tablet by mouth once daily Cholecalciferol (Vitamin D3) 1,000 UNIT tablet Active 1000 U PO DAILY January 21, 2020 12:00am supplement Start: 08-07-2013 End: 04-26-2018 Cholecalciferol (Vitamin D3) 2,000 UNIT tablet Discontinued 1000 U PO August 07, 2013 12:00am April 26, 2018 8:39am Start: 08-07-2013 End: 04-26-2018 Cholecalciferol (Vitamin D3) Discontinued 1000 UNIT PO August 06, 2013 11:00pm April 26, 2018 7:39am cholecalciferol (Vitamin D-3) 25 MCG (1000 UT) capsule Take by mouth. 0 Active fluticasone propionate 0.05 mg/actuat metered dose nasal spray (15 sources) Corticosteroid Start: 08-07-2022 fluticasone (F lonase) 50 MCG/ACT nasal spray SPRAY 1 SPRAY BY NASAL ROUTE EVERY DAY 48 mL 11 08/07/2022 Active Start: 05-02-2022 fluticasone (F lonase) 50 MCG/ACT nasal spray SPRAY 1 SPRAY BY NASAL ROUTE EVERY DAY 0 05/02/2022 Active Start: 01-21-2020 Fluticasone Pr opionate 16 GM spray,suspension Active 1 NMA INTRANASAL DAILY as needed for Allergies January 21, 2020 8:10am Start: 05-05-2019 End: 01-21-2020 Fluticasone Propionate 50 mc g/actuation spray,suspension Discontinued 1 NMA INTRANASAL DAILY 15.8 0 May 05, 2019 8:19am January 21, 2020 8:10am Start: 08-07-2013 End: 05-05-2019 Fluticasone Propionate 1 SPR AY spray,suspension Discontinued 1 NMA NASAL DAILY August 07, 2013 12:00am May 05, 2019 8:20am Start: 08-07-2013 End: 01-21-2020 Fluticasone Propionate Disco ntinued 1 SPRAY INTRANASAL DAILY 15.8 May 05, 2019 7:19am January 21, 2020 7:10am furosemide 20 mg oral tablet (5 sources) Loop Diuretic Start: 03-27-2023 take 10 mg by mouth once daily Furosemide 20 mg tablet Active 10 mg PO DAILY March 27, 2023 1:00am Start: 03-27-2023 take 10 mg by mouth once daily Furosemide Active 10 MG PO DAILY March 27, 2023 12:00am Start: 10-31-2022 End: 02-07-2023 take 1 tablet by mouth once daily furosemide (Lasix) 20 MG tablet Indications: Mild peripheral edema Take 1 tablet (20 mg) by mouth daily. 30 tablet 2 11/09/2022 02/07/2023 Active ibuprofen 200 mg oral tablet (6 sources) Nonsteroidal Anti-inflammatory Drug Start: 03-27-2023 take 1 tablet by mouth every six hours as needed Ibuprofen (Advil) 200 mg tablet Active 200 mg PO EVERY 6 HOURS as needed March 27, 2023 1:00am Start: 01-21-2020 End: 02-05-2020 Ibuprofen 200 MG tablet Disc ontinued 200 mg PO NEEDED as needed for Pain 1-10 Or Fever January 21, 2020 12:00am February 05, 2020 10:25am lansoprazole 30 mg delayed release oral capsule (8 sources) Proton Pump Inhibitor Start: 01-21-2020 End: 07-03-2022 take 1 capsule by mouth once daily Lansoprazole 30 MG capsule Active 30 mg PO DAILY January 21, 2020 12:00am reflux losartan potassium 25 mg oral tablet (6 sources) Angiotensin 2 Receptor Ronnell Start: 04-04-2024 End: 04-04-2024 take 1 tablet by mouth once daily Losartan 25 mg tablet Active 25 mg PO DAILY 90 3 April 04, 2024 3:23pm Start: 10-26-2023 End: 04-04-2024 Losartan 50 mg tablet Discon tinued 25 mg PO DAILY 90 October 26, 2023 1:29pm April 04, 2024 2:40pm Start: 10-25-2023 End: 10-26-2023 take 1 tablet by mouth once daily Losartan 50 mg tablet Discontinued 50 mg PO DAILY 90 October 25, 2023 12:00am October 26, 2023 1:29pm Start: 04-18-2023 End: 10-25-2023 take 1 tablet by mouth once daily Losartan 25 mg tablet Discontinued 25 mg PO DAILY 90 3 April 18, 2023 1:00am October 25, 2023 3:52pm Potassium (3 sources) POTASSIUM PO Nicanor e by mouth. 0 Active potassium gluconate 2.5 meq oral tablet (2 sources) Start: 03-27-2023 take 1 tablet by mouth once daily Potassium Gluconate 595 mg (99 mg) tablet Active 595 mg PO DAILY March 27, 2023 1:00am ubidecarenone 100 mg oral capsule (7 sources) Start: 04-18-2023 take 10 capsules by mouth once daily Coenzyme Q10 100 mg capsule Active 300 mg PO DAILY April 18, 2023 12:03pm Start: 03-27-2023 End: 04-18-2023 take 10 capsules by mouth once daily Coenzyme Q10 100 mg capsule Discontinued 100 mg PO DAILY March 27, 2023 1:00am April 18, 2023 12:03pm coenzyme Q-10 20 0 MG capsule Take by mouth. 0 Active Completed/Discontinued Medications Medication Drug Class(es) Dates Sig (Normalized) Sig (Original) acetaminophen 500 mg oral tablet (4 sources) Start: 02-05-2020 End: 03-27-2023 Acetaminophen 500 MG tablet Discontinued 1000 mg PO EVERY 8 HOURS 100 0 February 05, 2020 1:00am March 27, 2023 12:03pm Do not take more than 3000 mg Tylenol in a 24-hour period. Start: 02-05-2020 End: 03-27-2023 take 3000 mg by mouth every eight hours Acetaminophen Discontinued 1000 MG PO EVERY 8 HOURS 100 February 05, 2020 12:00am March 27, 2023 11:03am Do not take more than 3000 mg Tylenol in a 24-hour period. acetaminophen 325 mg / oxyCODONE hydrochloride 5 mg oral tablet (4 sources) Opioid Agonist Start: 08-12-2013 End: 04-26-2018 Oxycodone-Acetaminophen 1 TABLET tablet Discontinued 1 {tbl} PO EVERY 4 HOURS NEEDED as needed for Pain 40 0 August 12, 2013 12:00am April 26, 2018 8:40am Start: 08-12-2013 End: 04-26-2018 take 1 tablet by mouth every four hours as needed Oxycodone-Acetaminophen Discontinued 1 TABLET PO EVERY 4 HOURS NEEDED 40 August 11, 2013 11:00pm April 26, 2018 7:40am atorvastatin 10 mg oral tablet (5 sources) HMG-CoA Reductase Inhibitor Start: 10-18-2020 End: 03-27-2023 Atorvastatin 10 mg tablet Discontinued NMA PO October 18, 2020 12:00am March 27, 2023 12:03pm Start: 10-18-2020 End: 03-27-2023 Atorvastatin Discontinued TA B PO October 17, 2020 11:00pm March 27, 2023 11:03am diphenhydrAMINE hydrochloride 25 mg / naproxen sodium 220 mg oral tablet (4 sources) Histamine-1 Receptor Antagonist, Nonsteroidal Anti-inflammatory Drug Start: 01-21-2020 End: 02-05-2020 Naproxen-Diphenhydramine 1 EACH tablet Discontinued 1 NMA PO AT BEDTIME January 21, 2020 12:00am February 05, 2020 10:25am sleep Start: 01-21-2020 End: 02-05-2020 Naproxen-Diphenhydramine Dis continued 1 EACH PO AT BEDTIME January 20, 2020 11:00pm February 05, 2020 9:25am docusate sodium 50 mg / sennosides, mcc 8.6 mg oral tablet (4 sources) Start: 02-05-2020 End: 03-27-2023 Sennosides-Docusate Sodium 1 TABLET tablet Discontinued 2 {tbl} PO TWICE A DAY 0 February 05, 2020 1:00am March 27, 2023 12:03pm Take until first bowel movement, then as needed Start: 02-05-2020 End: 03-27-2023 Sennosides-Docusate Sodium D iscontinued 2 TABLET PO TWICE A DAY February 05, 2020 12:00am March 27, 2023 11:03am Take until first bowel movement, then as needed indomethacin 50 mg oral capsule (1 source) Nonsteroidal Anti-inflammatory Drug Start: 01-26-2022 End: 07-03-2022 indomethacin (Indocin) 50 MG capsule Take 50 mg by mouth. 0 01/26/2022 07/03/2022 Discontinued (Therapy completed) loratadine 10 mg oral tablet (4 sources) Start: 08-07-2013 End: 04-26-2018 take 1 tablet by mouth once daily Loratadine 10 MG tablet Discontinued 10 mg PO DAILY August 07, 2013 12:00am April 26, 2018 8:40am meloxicam 15 mg oral tablet (5 sources) Nonsteroidal Anti-inflammatory Drug Start: 04-28-2022 End: 07-03-2022 meloxicam (Mobic) 15 MG tablet Take by mouth. 0 04/28/2022 07/03/2022 Discontinued (Alternate therapy) Start: 02-05-2020 End: 03-27-2023 take 1 tablet by mouth twice daily Meloxicam 7.5 MG tablet Discontinued 7.5 mg PO TWICE A DAY 60 0 February 05, 2020 1:00am March 27, 2023 12:03pm Do not take any other nonsteroidal anti-inflammatories while using meloxicam/Mobic. oxyCODONE hydrochloride 5 mg oral tablet (4 sources) Opioid Agonist Start: 02-05-2020 End: 02-09-2020 take 5-10 mg by mouth every four hours as needed for pain Oxycodone 5 MG tablet Discontinued 5 - 10 mg PO EVERY 4 HOURS NEEDED as needed for Pain Score 4-10 48 4 0 February 05, 2020 February 08, 2020 1:00am February 09, 2020 1:02am Presence of right artificial hip joint Problems Active Problems Problem Classification Problem Date Documented Date Episodic/Chronic Disorders of lipid metabolism (10 sources) Mixed hypercholesterolemia and hypertriglyceridemia; Translations: [Mixed hyperlipidemia] Onset: 1 Chronic Diverticulosis and diverticulitis (3 sources) Diverticular disease; Translations: [Diverticulosis of intestine, part unspecified, without perforation or abscess without bleeding] Onset: 5 01-15-2022 Chronic Esophageal disorders (6 sources) Gastroesophageal reflux disease without esophagitis; Translations: [Gastro-esophageal reflux disease without esophagitis] Onset: 5 Chronic Essential hypertension (10 sources) Essential hypertension; Translations: [Essential (primary) hypertension] Onset: 5 Chronic Heart valve disorders (13 sources) Aortic stenosis, non-rheumatic ; Translations: [Nonrheumatic aortic (valve) stenosis] Onset: 1 01-15-2022 Chronic Heart valve disorders (2 sources) Heart murmur; Translations: [Cardiac murmur, unspecified] 03-27-2023 Episodic Hypertension with complications and secondary hypertension (4 sources) Hypertensive heart disease; Translations: [Hypertensive heart disease without heart failure] Onset: 5 04-18-2023 Chronic Malaise and fatigue (2 sources) Fatigue; Translations: [Other fatigue] 03-27-2023 Episodic Osteoarthritis (12 sources) Primary gonarthrosis, bilateral; Translations: [Bilateral primary osteoarthritis of knee] Onset: 1 Resolved: 3 Chronic Other skin disorders (4 sources) Mass of skin of right lower limb; Translations: [Disorder of the skin and subcutaneous tissue, unspecified] 10-18-2020 Episodic Other skin disorders (4 sources) Lesion of skin of foot; Translations: [Disorder of the skin and subcutaneous tissue, unspecified] 10-18-2020 Episodic Other upper respiratory disease (3 sources) Allergic rhinitis; Translations: [Allergic rhinitis, unspecified] Onset: 5 01-15-2022 Chronic Other upper respiratory infections (4 sources) Acute upper respiratory infection; Translations: [Acute upper respiratory infection, unspecified] 04-26-2018 Episodic Residual codes; unclassified (5 sources) Other specified health status; Translations: [Other drug allergy] Onset: 1 01-15-2022 Episodic Comment on above: 01/03/2021 per pcp Residual codes; unclassified (2 sources) Peripheral edema; Translations: [Localized edema] 10-31-2022 Episodic Residual codes; unclassified (2 sources) Localized edema; Translations: [Localized edema] Onset: 3 Episodic Spondylosis; intervertebral disc disorders; other back problems (6 sources) Degeneration of lumbar intervertebral disc; Translations: [Other intervertebral disc degeneration, lumbar region] Onset: 5 Chronic Past or Other Problems Problem Classification [...] 07-03-2022 Episodic Residual codes; unclassified (3 sources) Maternal history of diabetes mellitus; Translations: [Family history of diabetes mellitus] Onset: 01-07-2016 01-15-2022 Episodic Spondylosis; intervertebral disc disorders; other back problems (3 sources) Sciatica; Translations: [Other specified dorsopathies, lumbar region] Onset: 01-01-2015 01-15-2022 Episodic Results Test Name Value Interpretation Reference Range Facility CBC W/Diff, Automatedon 10-0 Absolute Lymph 1.47 X10 3/uL Normal 0.83-4.51 [facility] Comment on above: Performed By: #### L 500.4050, L500.4100, L100.0100 #### [facility] [address] [place], [address] Absolute Neut 3.6 X10 3/uL Normal 2.0-7.7 [facility] Comment on above: Performed By: #### L [id number], L500.4100, L100.0100 #### [facility] [address] [place], [address] Basophils/100 WBC (Bld) 1.3 % High 0-1 [facility] Comment on above: Performed By: #### L [id number], L500.4100, L100.0100 #### [facility] [address] [place], [address] Eosinophils/100 WBC (Bld) 3.7 % Normal 0-5 [facility] Comment on above: Performed By: #### L [id number], L500.4100, L100.0100 #### [facility] [address] [place], [address] Erythrocyte distribution width (RBC) [Ratio] 13.0 % Normal 11.6-14.6 [facility] Comment on above: Performed By: #### L [id number], L500.4100, L100.0100 #### [facility] [address] [place], [address] Hematocrit (Bld) [Volume fraction] 40.9 % Normal 37-47 [facility] Comment on above: Performed By: #### L 500.4050, L500.4100, L100.0100 #### [facility] [address] [place], [address] Hemoglobin (Bld) [Mass/Vol] 13.5 g/dL Normal 12.0-15.0 [facility] Comment on above: Performed By: #### L 500.4050, L500.4100, L100.0100 #### [facility] [address] [place], [address] IG% 0.300 Normal 0.0-0.9 [facility] Comment on above: Result Comment: IG% - Immature Granulocytes (promyelocytes, myelocytes and metamyelocytes) > 1% indicates that a LEFT SHIFT is Present. Performed By: #### L 500.4050, L500.4100, L100.0100 #### [facility] [address] [place], [address] Lymphocytes/100 WBC (Bld) 24.7 % Normal 19-41 [facility] Comment on above: Performed By: #### L 500.4050, L500.4100, L100.0100 #### [facility] [address] [place], [address] MCH (RBC) [Entitic mass] 29.5 pg Normal 27.0-32.0 [facility] Comment on above: Performed By: #### L 500.4050, [id number], L100.0100 #### [facility] [address] [place], [address] MCHC (RBC) [Mass/Vol] 33.0 g/dL Normal 32-36 [facility] Comment on above: Performed By: #### L 500.4050, [id number], L100.0100 #### [facility] [address] [place], [address] MCV (RBC) [Entitic vol] 89.5 fL Normal 81-99 [facility] Comment on above: Performed By: #### L 500.4050, [id number], L100.0100 #### [facility] [address] [place], [address] Monocytes/100 WBC (Bld) 9.6 % Normal 0-10 [facility] Comment on above: Performed By: #### L 500.4050, [id number], L100.0100 #### [facility] [address] [place], [address] Neutrophils/100 WBC (Bld) 60.4 % Normal 47-70 [facility] Comment on above: Performed By: #### L 500.4050, [id number], L100.0100 #### [facility] [address] [place], [address] Nucleated RBC (Bld) [#/Vol] 0 10*3/uL Normal 0-5 [facility] Comment on above: Performed By: #### L 500.4050, [id number], L100.0100 #### [facility] [address] [place], [address] Platelet mean volume (Bld) [Entitic vol] 10.1 fL Normal 6.2-12.0 [facility] Comment on above: Performed By: #### L 500.4050, L500.4100, L100.0100 #### [facility] [address] [place], [address] Platelets (Bld) [#/Vol] 248 10*3/uL Normal 150-450 [facility] Comment on above: Performed By: #### L 500.4050, [id number], L100.0100 #### [facility] [address] [place], [address] RBC (Bld) [#/Vol] 4.57 10*6/uL Normal 4.2-5.4 [facility] Comment on above: Performed By: #### L 500.4050, [id number], L100.0100 #### [facility] [address] [place], [address] RDW SD 42.4 fl Normal 35.1-43.9 [facility] Comment on above: Performed By: #### L 500.4050, [id number], L100.0100 #### [facility] [address] [place], [address] WBC (Bld) [#/Vol] 6.0 10*3/uL Normal 4.4-11.0 [facility] Comment on above: Performed By: #### L 500.4050, [id number], L100.0100 #### [facility] [address] [place], [address] [facility] 01-01-2025 Albumin [Mass/Vol] 3.9 g/dL Normal 3.4-4.8 [facility] Comment on above: Performed By: #### L 500.4050, [id number], L100.0100 #### [facility] [address] [place], [address] Albumin/Globulin [Mass ratio] 1.3 {ratio} Normal 0.9-2.4 [facility] Comment on above: Performed By: #### L 500.4050, L500.4100, L100.0100 #### [facility] [address] [place], [address] ALK PHOS 74 U/L Normal 35-104 [facility] Comment on above: Performed By: #### L 500.4050, [id number], L100.0100 #### [facility] [address] [place], [address] ALT [Catalytic activity/Vol] 13 U/L Normal <=34 [facility] Comment on above: Performed By: #### L 500.4050, L500.4100, L100.0100 #### [facility] [address] [place], [address] AST [Catalytic activity/Vol] 20 U/L Normal <=31 [facility] Comment on above: Performed By: #### L 500.4050, [id number], L100.0100 #### [facility] [address] [place], [address] Bilirubin [Mass/Vol] 0.62 mg/dL Normal 0.00-1.30 [facility] Comment on above: Performed By: #### L 500.4050, [id number], L100.0100 #### [facility] [address] [place], [address] BUN/CRE 20.9 RATIO High 10-20 [facility] Comment on above: Performed By: #### L 500.4050, [id number], L100.0100 #### [facility] [address] [place], [address] Calcium [Mass/Vol] 9.2 mg/dL Normal 7.6-11.0 [facility] Comment on above: Performed By: #### L 500.4050, [id number], L100.0100 #### [facility] [address] [place], [address] Chloride [Moles/Vol] 101 mmol/L Normal 98-108 [facility] Comment on above: Performed By: #### L 500.4050, [id number], L100.0100 #### [facility] [address] [place], [address] CO2 [Moles/Vol] 23.7 mmol/L Normal 21.0-32.0 [facility] Comment on above: Performed By: #### L 500.4050, [id number], L100.0100 #### [facility] [address] [place], [address] Creatinine [Mass/Vol] 0.92 mg/dL Normal 0.70-1.20 [facility] Comment on above: Performed By: #### L 500.4050, [id number], L100.0100 #### [facility] [address] [place], [address] GAP 13 Normal 5-15 [facility] Comment on above: Performed By: #### L 500.4050, L500.4100, L100.0100 #### [facility] [address] [place], [address] GFR/1.73 sq M.predicted among non-blacks MDRD (S/P/Bld) [Vol rate/Area] 63 mL/min/{1.73_m2} Normal >60 [facility] Comment on above: Result Comment: mL/m in/1.73m2 CKD-EPI Creatinine Equation (2020) Performed By: #### L 500.4050, L500.4100, L100.0100 #### [facility] [address] [place], [address] Globulin (S) [Mass/Vol] 2.9 g/dL Normal 2.2-4.2 [facility] Comment on above: Performed By: #### L 500.4050, [id number], L100.0100 #### [facility] [address] [place], [address] Glucose [Mass/Vol] 99 mg/dL Normal 70-99 [facility] Comment on above: Performed By: #### L 500.4050, [id number], L100.0100 #### [facility] [address] [place], [address] Potassium [Moles/Vol] 4.0 mmol/L Normal 3.3-5.1 [facility] Comment on above: Performed By: #### L 500.4050, [id number], L100.0100 #### [facility] [address] [place], [address] Sodium [Moles/Vol] 137 mmol/L Normal 133-145 [facility] Comment on above: Performed By: #### L 500.4050, [id number], L100.0100 #### [facility] [address] [place], [address] T PROT 6.8 g/dL Normal 5.9-8.4 [facility] Comment on above: Performed By: #### L 500.4050, [id number], L100.0100 #### [facility] [address] [place], [address] Urea nitrogen [Mass/Vol] 19 mg/dL Normal 4-19 [facility] Comment on above: Performed By: #### L 500.4050, [id number], L100.0100 #### [facility] [address] [place], [address] Lipid Profileon 01-01-2025 CHOL:HDL 4.60 Normal [facility] Comment on above: Performed By: #### L 500.4050, [id number], L100.0100 #### [facility] [address] [place], [address] Cholesterol [Mass/Vol] 246 mg/dL High <=200 [facility] Comment on above: Result Comment: Chol esterol level, Desirable <200 mg/dL Borderline high cholesterol 200-239 mg/dL High cholesterol >=240 mg/dL Recommendations of the NCEP Adult Treatment Panel for the following risk-cutoff thresholds for the [place] population. Performed By: #### L 500.4050, L500.4100, L100.0100 #### [facility] [address] [place], [address] Cholesterol in HDL [Mass/Vol] 54 mg/dL Normal [facility] Comment on above: Result Comment: Karen onal Cholesterol Education Program (NCEP) guidelines: <40 mg/dL: Low HDL-cholesterol (major risk factor for CHD) >= 60 mg/dL: High HDL-cholesterol (negative risk factor for CHD) HDL-cholesterol is affected by a number of factors, e.g. smoking, exercise, hormones, sex and age. Performed By: #### L 500.4050, L500.4100, L100.0100 #### [facility] [address] [place], [address] Cholesterol in LDL [Mass/Vol] 163 mg/dL Normal [facility] Comment on above: Result Comment: Bord iijutg=761-423 mg/dL Higher Yeff=419 mg/dL or greater Friedwald Equation for LDL-C Performed By: #### L 500.4050, L500.4100, L100.0100 #### [facility] [address] [place], [address] Cholesterol in VLDL [Mass/Vol] 29 mg/dL Normal 5-40 [facility] Comment on above: Performed By: #### L 500.4050, [id number], L100.0100 #### [facility] [address] [place], [address] Triglyceride [Mass/Vol] 147 mg/dL Normal [facility] Comment on above: Result Comment: The drugs N-Acetylcysteine and Metamizole may falsely depress this assay. Normal range: <150 mg/dL Borderline High: 150-199 mg/dL High: 200-499 mg/dL Very High: >500 mg/dL Performed By: #### L 500.4050, L500.4100, L100.0100 #### [facility] [address] [place], [address] Urgent Care Visit Reporton 0 09-30-2024 Urgent Care Visit Report [facility] [address], [address] [place], [place] [address] OFFICE VISIT Date of Service: 09/30/24 MR#: [id number] Acct: [id number] Name: ASHLEIGH VILLEGAS CLEMENTE Rep #: [id number] : 1945 Provider: KEVIN Garcia Age/Sex: 79/F Location: [facility] Status: Signed Intake Vital Signs 04/24/24 12:47 09/30/24 07:30 Height 5 ft 3 in 5 ft 3 in Weight: 167 lb 168 lb BMI 29.5 29.7 BP 150/58 H 138/78 H Blood Pressure Location Lt brachial Position Sitting Sitting Respiration 16 14 Pulse 63 68 Pulse Source NIBP Temp 97.9 F Temp Source Oral Pulse Oximetry (%) 97 Oxygen Delivery Method room air Intake Visit Reasons: CONCERN FOR SINUS INFECTION Chief Complaint: I Accompanied by: Self Allergies [id number]-[id number]-[id number] Reductase Inhibitor Adverse Reaction (Intermediate, Verified 09/30/24 07:30) myalgias Medications ???Medication ???Instructions ???Recorded ???Confirmed ???Type cholecalciferol (vitamin D3) 25 1,000 unit PO DAILY supplement 09/30/24 History mcg (1,000 unit) tablet fluticasone propionate 50 1 spray intranasal DAILY PRN 01/2004/18/24 History mcg/actuation nasal Allergies spray,suspension lansoprazole 30 mg capsule,delayed 30 mg PO DAILY reflux 01/21/20 0 09/30/24 History release aspirin 81 mg tablet,delayed 81 mg PO DAILY 03/27/23 09/30/24 H istory release atenolol 50 mg tablet 25 mg PO DAILY bp 03/27/23 5 History furosemide 20 mg tablet 10 mg PO DAILY 03/27/23 09/30/24 H istory ibuprofen 200 mg tablet (Advil) 200 mg PO Q6H PRN 03/27/23 5 History potassium gluconate 595 mg (99 mg) 595 mg PO DAILY 03/27/23 5 History tablet coenzyme Q10 100 mg capsule 300 mg PO DAILY 04/18/23 09/30/24 History losartan 25 mg tablet 25 mg PO DAILY #90 tabs 04/04/24 0 09/30/24 Rx amoxicillin 500 mg tablet 500 mg PO TID #30 tabs 09/30/24 Rx Have you fallen in the past year?: No PFSH Medical History Aortic valve stenosis DDD (degenerative disc disease), lumbosacral Fatigue GERD (gastroesophageal reflux disease) Heart murmur Hemorrhoids HTN (hypertension) Hyperlipidemia Hypertensive heart disease Mild peripheral edema Mitral insufficiency and aortic stenosis Mitral regurgitation Osteoarthritis Skin cancer, basal cell Skin lesion of foot Skin lesion of right leg Statin intolerance Transient global amnesia URI, acute Surgical History History of foot surgery ( 1997) History of right hip replacement ( 2019) Hx of breast biopsy ( 2008) Hx of carpal tunnel repair ( 1998) Hx of cataract surgery ( 2018) Hx of dilation and curettage ( 2002) Hx of tonsillectomy ( 1967) Hx of tubal ligation ( 1974) Family History Sister Cancer kidney Heart disease valve Brother Cancer prostate CAD (coronary artery disease) stents Mother , 71 Hypertension Heart disease valve Diabetes CHF (congestive heart failure) Father , 68-smoker COPD (chronic obstructive pulmonary disease) Brother AAA (abdominal aortic aneurysm) Hypertension Cancer prostate Social History Smoking Status: Never smoker alcohol intake: current alcohol intake frequency: a few times a week substance use type: does not use caffeine: Yes Type: coffee Number of servings: 2 HPI HPI Chief Complaint: I Details: ASHLEIGH VILLEGAS, is a 79 F who presents to the office today for [facility] evaluation at the [facility] for approximately 2-3-week history of progressively worsening R>L facial pressure/congestion with purulent postnasal drip/cough and bilateral ear pressure. No complaints of fever, chills, myalgias, fatigue, runny nose, or nausea/vomiting/diarrhea . No complaints of chest pain/shortness of breath/dyspnea on exertion. No close contacts with similar complaints. No other associated symptoms and no other alleviating/aggravating factors. ROS Const Constitutional: No other (as above) Exam Const General: cooperative, healthy appearing and no acute distress Nutritional Appearance: average body habitus Orientation: alert, awake and oriented x3 HENMT Head: normal to inspection Ears: hearing grossly normal bilaterally, external ears normal, TM's normal bilaterally and EAC's normal Nose: external nose normal, nares normal, septum normal and no nasal discharge Face and sinus: normal facial exam, R>L maxillary sinuses palpable tender (with right maxillary fullness to palpation) and face symmetric Mouth: oral mucosae normal, lip normal, tongue normal and oropharynx normal Throat: po (more content not included)... Normal [facility] Echo Completeon 05-07-2024 Echo Complete [facility] [address] [place] [address] Echo Complete 05/07/24 1354 MR#: [id number] Acct: [id number] Name: ASHLEIGH VILLEGAS CLEMENTE Rep #: [id number] : 1945 79 From: Lianne Peace MD Attending Dr: Dr. Lianne Peace MD Status: REG I Ordering Dr: Lianne Peace MD Date: 05/07/24 Location: [facility] Sex: F C Admitted: Reason For Study: Murmur Procedure This was a 2D Doppler, Color Flow transthoracic echocardiogram. Exam performed in department. Left Ventricle Normal LV size. Mild concentric left ventricular hypertrophy. Sigmoid septum. The left ventricular ejection fraction is 65 %. Stage 1 diastolic dysfunction. Right Ventricle Normal right ventricle. Atria The left atrium is mildly enlarged. Normal right atrium. Mitral Valve Severe mitral annular calcification. Mild-Moderate (1-2+) mitral valve insufficiency. Tricuspid Valve Mild tricuspid valve insufficiency. Normal pulmonary artery pressure. Aortic Valve Mildly thickened aortic valve leaflets. Mild aortic valve stenosis. Mean peak gradient 14 mmHg. Pulmonic Valve The pulmonic valve is not well visualized. Great Vessels Normal sized aortic root. Pericardium/Pleural No pericardial effusion. MMode/2D Measurements Calculations LVIDd: 3.7 cm IVSd: 1.2 cm LVOT diam: 2.0 cm LVIDs: 2.4 cm LVPWd: 0.98 cm LVOT area: 3.2 cm2 RVDd: 4.0 cm FS: 35.4 % Ao root diam: 3.5 cm LAV(MOD-bp): 71.3 ml LVAd ap4: 17.5 cm2 LAV(MOD-bp) Indexed: 39.8 ml/m2 LVLd ap4: 6.0 cm LAV(MOD-sp2): 73.6 ml EDV(MOD-sp4): 42.1 ml LAV(MOD-sp4): 70.3 ml EDV(sp4-el): 43.8 ml LVAs ap4: 9.8 cm2 LVLs ap4: 5.0 cm ESV(MOD-sp4): 16.8 ml ESV(sp4-el): 16.2 ml EF(MOD-sp4): 60.2 % EF(sp4-el): 63.1 % SV(MOD-sp4): 25.4 ml SV(sp4-el): 27.7 ml Ao sinus diam: 3.1 cm SI(MOD-sp4): 14.2 ml/m2 Ao ST Junction: 2.3 cm LA A4 area: 21.8 cm2 LA dimension(2D): 4.1 cm TAPSE: 1.9 cm RA A4 area: 13.9 cm2 Time Measurements MV dec time: 0.39 sec Doppler Measurements Calculations MV E max jose: 123.2 cm/sec Lat Peak E' Jose: 3.4 cm/sec Med Peak E' Jose: 3.9 cm/sec MV A max jose: 146.3 cm/sec E/E' lat: 35.9 E/E' med: 31.6 MV E/A: 0.84 MV V2 max: 162.2 cm/sec MV P1/2t max jose: 122.4 cm/sec Ao V2 max: 252.4 cm/sec MV max P.5 mmHg MV P1/2t: 118.7 msec Ao max P.5 mmHg MV V2 mean: 88.7 cm/sec MV dec slope: 302.0 cm/sec2 Ao V2 mean: 175.4 cm/sec MV mean P.6 mmHg Ao mean P.0 mmHg MV V2 VTI: 46.1 cm MVA(P1/2t): 1.9 cm2 Ao V2 VTI: 64.0 cm MVA(VTI): 1.9 cm2 AV (velocity ratio): 0.43 PRITESH(I,D): 1.4 cm2 PRITESH(V,D): 1.5 cm2 LV V1 max: 118.1 cm/sec SV(LVOT): 87.8 ml PA V2 max: 90.6 cm/sec LV V1 max P.6 mmHg PA V2 mean: 65.3 cm/sec LV V1 mean P.1 mmHg LV V1 mean: 83.2 cm/sec LV V1 VTI: 27.5 cm TR max jose: 220.6 cm/sec TR max P.5 mmHg ECHO/Echo Complete Interpretation Summary Mild concentric left ventricular hypertrophy. The left ventricular ejection fraction is 65 %. Stage 1 diastolic dysfunction. The left atrium is mildly enlarged. Mild-Moderate (1-2+) mitral valve insufficiency. Mild tricuspid valve insufficiency. Mildly thickened aortic valve leaflets. Mild aortic valve stenosis. Mean peak gradient 14 mmHg. Ordering Physician: Lianne Peace Referring Physician: Lianne Peace Performed By: Michael Ro RCS 05/08/24 0908 Date Lianne Peace MD CC: Dr. Lianne Peace MD; Dr. Sheila Contreras MD Date Dictated: 05/07/24 1354 Date Transcribed: 05/08/24 0908 Teletypewriter Installer: Signed Normal [facility] Visit Reporton Cardiology Visit Report [facility] [address] [place] [address] OFFICE VISIT Date of Service: 04/24/24 MR#: [id number] Acct: [id number] Name: ASHLEIGH VILLEGAS CLEMENTE Rep #: [id number] : 1945 Provider: Dr. Lianne Peace MD Age/Sex: 79/F Location: [facility] Status: Signed HPI HPI History of Present Illness Details: This pleasant lady with a history of hypertension, hypertensive heart disease, mitral valve regurgitation and aortic valve stenosis is here for routine follow-up visit. Denies any complaints. No chest pains. No shortness of breath. No palpitations. No orthopnea or PND. No ankle edema. No syncope or presyncope. Intake Vital Signs 10/15/23 14:28 04/24/24 12:47 Height 5 ft 3 in 5 ft 3 in Weight: 169 lb 167 lb BMI 29.9 29.5 BP 184/83 H 150/58 H Blood Pressure Location Lt brachial Lt brachial Position Sitting Sitting Respiration 18 16 Pulse 61 63 Pulse Source Monitor NIBP Pulse Oximetry (%) 99 Oxygen Delivery Method room air Intake Visit Reasons: 6 M FU Cooker Syrup Required: No Accompanied by: Self Is patient in pain?: No Allergies [id number] Reductase Inhibitor Adverse Reaction (Intermediate, Verified 04/24/24 14:24) myalgias Medications ???Medication ???Instructions ???Recorded ???Confirmed ???Type cholecalciferol (vitamin D3) 25 1,000 unit PO DAILY supplement 01/21/20 04/18/24 History mcg (1,000 unit) tablet fluticasone propionate 50 1 spray intranasal DAILY PRN 01/21/20 04/18/24 History mcg/actuation nasal Allergies spray,suspension lansoprazole 30 mg capsule,delayed 30 mg PO DAILY reflux 01/21/20 04/18/24 History release aspirin 81 mg tablet,delayed 81 mg PO DAILY 03/27/23 04/18/24 History release atenolol 50 mg tablet 25 mg PO DAILY bp 03/27/23 04/18/24 History furosemide 20 mg tablet 10 mg PO DAILY 03/27/23 04/18/24 History ibuprofen 200 mg tablet (Advil) 200 mg PO Q6H PRN 03/27/23 04/18/24 History potassium gluconate 595 mg (99 mg) 595 mg PO DAILY 03/27/23 04/18/24 History tablet coenzyme Q10 100 mg capsule 300 mg PO DAILY 04/18/23 04/18/24 History losartan 25 mg tablet 25 mg PO DAILY #90 tabs 04/04/24 04/18/24 Rx Ejection fraction %: 82 Have you fallen in the past year?: Yes (once at [place], trip on carpet) PFSH Medical History Aortic valve stenosis DDD (degenerative disc disease), lumbosacral Fatigue GERD (gastroesophageal reflux disease) Heart murmur Hemorrhoids HTN (hypertension) Hyperlipidemia Hypertensive heart disease Mild peripheral edema Mitral insufficiency and aortic stenosis Mitral regurgitation Osteoarthritis Skin cancer, basal cell Skin lesion of foot Skin lesion of right leg Statin intolerance Transient global amnesia URI, acute Surgical History History of foot surgery ( 1997) History of right hip replacement ( 2019) Hx of breast biopsy ( 2008) Hx of carpal tunnel repair ( 1998) Hx of cataract surgery ( 2018) Hx of dilation and curettage ( 2002) Hx of tonsillectomy ( 1967) Hx of tubal ligation ( 1974) Family History Sister Cancer kidney Heart disease valve Brother Cancer prostate CAD (coronary artery disease) stents Mother , 71 Hypertension Heart disease valve Diabetes CHF (congestive heart failure) Father , 68-smoker COPD (chronic obstructive pulmonary disease) Brother AAA (abdominal aortic aneurysm) Hypertension Cancer prostate Social History Smoking Status: Never smoker alcohol intake: current alcohol intake frequency: a few times a week substance use type: does not use caffeine: Yes Type: coffee Number of servings: 2 ROS Const Const: Negative for fatigue, weakness, headache(s) or weight gain ENT ENT: Negative for headache(s), dizziness, Nosebleed/epistaxis or balance problems Cardio Chest Pain: No Palpitations: No Edema: None Muscle aches with walking: None Resp Respiratory: Negative for SOB with activity, SOB at rest or SOB orthopnea SOB lying down GI GI: Negative nausea, vomiting or heartburn Musc Musc: Negative for muscle aches/ myalgia, muscle weakness, joint pain or balance problems Neuro Neuro: Negative for dizziness, lightheadedness, near syncope, syncope, headache(s) or weakness Endo Endo: Negative for fatigue Cardiology Exam Const Appearance: comfortable and no acute distress Nutritional Appearance: well nourished Neck Neck: no JVD Carotids: Negative bruit Chest Auscultation: Bilateral: Clear to Auscultation Cardio Rate: regular rate Rhythm: regular rhythm Heart sounds: S (more content not included)... Normal [facility] No Panel InformationOrdered By: Sheila Contreras on 02-08-2023 Thyroid Stimulating Hormone (TSH) 2.11 uIU/mL 0.358-3.74 [facility] Absolute lymphocyte countOrd ered By: Sheila Contreras on 12-21-2022 Lymphocytes Auto (Unsp spec) [#/Vol] 1.97 10*3/uL 0.83-4.51 [facility] Basophil percentageOrdered B y: Sheila Contreras on 12-21-2022 Basophils/100 WBC (Bld) 1.0 % 0-1 [facility] Bilirubin [Mass/Vol] 0.60 mg/dL 0.20-1.00 [facility] Comment on above: For patients on eltr ombopag therapy, use of Dimension [place] TBIL is not recommended. Chloride [Moles/Vol] 103 mmol/L 98-107 [facility] Cholesterol [Mass/Vol] 243 mg/dL <200 [facility] Comment on above: <200 mg/dL Desirable 200-240 mg/dL Borderline >240 mg/dL High Risk Eosinophils/100 WBC (Bld) 1.5 % 0-5 [facility] Glucose [Mass/Vol] 94 mg/dL 74-106 [facility] Neutrophils (Bld) [#/Vol] 4.5 10*3/uL 2.0-7.7 [facility] Neutrophils/100 WBC (Bld) 61.9 % 47-70 [facility] Potassium [Moles/Vol] 3.9 mmol/L 3.5-5.1 [facility] Protein [Mass/Vol] 7.0 g/dL 6.4-8.2 [facility] Sodium [Moles/Vol] 138 mmol/L 136-145 [facility] Triglyceride [Mass/Vol] 220 mg/dL <199 [facility] Comment on above: The drugs N-Acetylcy steine and Metamizole may falsely depress this assay.Serum Triglycerides Reference Interval Normal <150 mg/dL Borderline high 150 - 199 mg/dL High 200 - 499 mg/dL Very High > or = 500 mg/dL WBC (Bld) [#/Vol] 7.2 10*3/uL 4.4-11.0 [facility] Blood erythrocytes count (nu mber/volume)Ordered By: Sheila Contreras on 12-21-2022 RBC (Bld) [#/Vol] 4.69 10*6/uL 4.2-5.4 [facility] Blood hemoglobin measurement (mass/volume)Ordered By: Sheila Contreras on 12-21-2022 Hemoglobin (Bld) [Mass/Vol] 14.0 g/dL 12.0-15.0 [facility] Blood lymphocytes/100 leukoc ytesOrdered By: Sheila Contreras on 12-21-2022 Lymphocytes/100 WBC (Bld) 27.3 % 19-41 [facility] Blood monocytes/100 leukocyt esOrdered By: Sheila Contreras on 12-21-2022 Monocytes/100 WBC (Bld) 8.0 % 0-10 [facility] Blood platelet mean volumeOr dered By: Sheila Contreras on 12-21-2022 Platelet mean volume (Bld) [Entitic vol] 10.6 fL 6.2-12.0 [facility] Determination of erythrocyte mean corpuscular volume (MCV)Ordered By: Sheila Contreras on 12-21-2022 MCV (RBC) [Entitic vol] 95.5 fL 81-99 [facility] Hematocrit Auto (Bld) [Volum e fraction]Ordered By: Sheila Contreras on 12-21-2022 Hematocrit (Bld) [Volume fraction] 44.8 % 37-47 [facility] - Chemistry and C hemistry - challengeOrdered By: Sheila Contreras on 12-21-2022 ALP [Catalytic activity/Vol] 88 U/L 45-117 [facility] ALT [Catalytic activity/Vol] 20 U/L 13-56 [facility] CO2 [Moles/Vol] 32.0 mmol/L 21.0-32.0 [facility] Globulin (S) [Mass/Vol] 3.6 g/dL 2.2-4.2 [facility] Urea nitrogen/Creatinine [Mass ratio] 18.2 mg/mg 10-20 [facility] - Hematology and Cell countsOrdered By: Sheiladontae Contreras on 12-21-2022 Erythrocyte distribution width (RBC) [Entitic vol] 45.9 fL 35.1-43.9 [facility] Erythrocyte distribution width (RBC) [Ratio] 12.9 % 11.6-14.6 [facility] Immature granulocytes/100 WBC (Bld) 0.300 % 0.0-0.9 [facility] Comment on above: IG% - Immature Granu locytes (promyelocytes, myelocytes and metamyelocytes) > 1% indicates that a LEFT SHIFT is Present. MCH (RBC) [Entitic mass] 29.9 pg 27.0-32.0 [facility] Nucleated RBC/100 WBC (Bld) [Ratio] 0 % 0-5 [facility] MCHC Auto (RBC) [Mass/Vol]Or dered By: Sheila Contreras on 12-21-2022 MCHC (RBC) [Mass/Vol] 31.3 g/dL 32-36 [facility] No Panel InformationOrdered By: Sheila Contreras on 12-21-2022 Estimated GFR (MDRD) Amer 62 mL/min >60 [facility] Comment on above: GFR Calc Estimated GFR (MDRD) Non-Af Amer 51 mL/min >60 [facility] Comment on above: Non- GFR Calc Platelets bldOrdered By: See Contreras on 12-21-2022 Platelets (Bld) [#/Vol] 275 10*3/uL 150-450 [facility] Serum or plasma albumin rosa urement (mass/volume)Ordered By: Sheila Contreras on 12-21-2022 Albumin [Mass/Vol] 3.4 g/dL 3.2-5.0 [facility] Serum or plasma albumin/glob ulin mass ratioOrdered By: Sheila Contreras on 12-21-2022 Albumin/Globulin [Mass ratio] 0.9 {ratio} 0.9-2.4 [facility] Serum or plasma calcium rosa urement (mass/volume)Ordered By: Sheila Contreras on 12-21-2022 Calcium [Mass/Vol] 9.2 mg/dL 8.5-10.1 [facility] Serum or plasma cholesterol in HDL measurement (mass/volume)Ordered By: Sheila Contreras on 12-21-2022 Cholesterol in HDL [Mass/Vol] 52 mg/dL >40 [facility] Comment on above: The drugs N-Acetylcy steine and Metamizole may falsely depress this assay. Reference Range HDL <40 mg/dL Low HDL Cholesterol HDL >or= 60 mg/dL High HDL Cholesterol Serum or plasma cholesterol in VLDL measurement (mass/volume)Ordered By: Sheila Contreras on 12-21-2022 Cholesterol in VLDL [Mass/Vol] 44 mg/dL 5-40 [facility] Serum or plasma creatinine m easurement (mass/volume)Ordered By: Sheila Contreras on 12-21-2022 Creatinine [Mass/Vol] 1.10 mg/dL 0.55-1.02 [facility] Comment on above: The validity of the calculated GFR & GFRAA in patients over 70 years has not been determined. Clinical correlation is essential. Serum or plasma low density lipoprotein (LDL) cholesterol measurement (mass/volume)Ordered By: Sheila Contreras on 12-21-2022 Cholesterol in LDL [Mass/Vol] 147 mg/dL 0-130 [facility] Serum or plasma urea nitroge n measurement (mass/volume)Ordered By: Sheila Contreras on 12-21-2022 Urea nitrogen [Mass/Vol] 20 mg/dL 7-18 [facility] Thin prep Papanicolaou smear with manual screeningOrdered By: Sheila Contreras on 12-21-2022 Thin prep Papanicolaou smear with manual screening 12 U/L 15-37 [facility] Thin prep Papanicolaou smear with manual screening 3 5-15 [facility] 36on 11-09-2022 36 Rx loaded Last apt 10/31/22 [facility] 36 Ordering provider: lola Date of last office visit: 10/31/2022 Date of next office visit: 01/01/2023 Updated/Validated preferred pharmacy: [facility] Patient instructed to contact the pharmacy [...] of last refill (see medication tab): 10/31/2022 [facility] Office Visiton 10-31-2022 Follow-up visit [id number] Ashleigh Villegas 1945 F Date Provider Department Center 10/31/2022 [id number] JUDGE [facility] Family History Problem Relation Age of Onset Coronary artery disease Brother 71.00 Comments: stents Other Mother Comments: AV repl Diabetes Mother Comments: age 71 of CHF, RF Other Brother 65.00 Comments: AAA repair Hypertension Brother COPD Father Comments: age 68, smoker Prostate cancer Brother Hypertension Sister Kidney cancer Sister 64.00 Prostate cancer Brother Family Status - Relation Status Age at Brother Alive Mother 71 Brother Alive Father 68 Sister Alive Level of Service:94513 IN OFFICE/OUTPATIENT ESTABLISHED LOW MDM 20-29 MIN Reason for Visit and Comments: Foot Swelling [356254] - Both feet [facility] Progress Noteon 10-31-2022 Progress Note [facility] [address] [facility] [address] Dept: [phone] Dept Loc: [phone] Visit type: Established Patient Reason for Visit: [...] and chronic back pain who contacted the [facility] for next day appointment evaluation [...] of basal cell carcinoma anterior chest ([facility]) History of colonoscopy with polypectomy 08/2014 Vanessa, repeat 2021- defers till 2022 History of gout 2011 toes Knee osteoarthritis per Dr. Dill Menopause 1997 pap and pelvic per Dr. Sanchez 11/13 [...] artery disease Brother Eugenio 71.00 stents Other ([id number]) Mother AV repl Diabetes Mother age 71 of CHF, RF Other ([id number]) Brother cherry 65.00 AAA repair Hypertension Brother cherry COPD Father age 68, smoker Prostate cancer Brother Eugenio Hypertension Sister Mey Palafox (more content not included)... [facility] 36on 10-30-2022 36 Triage message eileen tilley with clinical staff. Patient appointment confirmed. PCP will assess at appointment visit. [facility] 36 S: Patient spoke yayo andres [facility] nurse regarding swelling to both foot and ankles. B: Onset of symptoms/concern: started about 3 weeks ago. A: Patient state she has moderate swelling to both feet and ankles. Denies fever. Denies pain. Denies any other symptoms except feet and ankle swelling, denies chest pain or difficulty breathing. R: Patient understands care advice. COVID screening questions negative. Offered an appointment today, she declines. Office visit scheduled on 10/31/22 at 11:20AM. The location, date, provider, time of appointment were reviewed and insurance verified with the patient. Patient verbalizes understanding. Patient advised to bring photo ID and Insurance card. No further needs at this time. Patient instructed to call back with new or worsening symptoms. Reason for Disposition MODERATE swelling of both ankles (e.g., swelling extends up to the knees) AND new-onset or worsening Protocols used: Leg Swelling and [id number] [facility] 36on 08-07-2022 36 Last appointment 07/03/2022 , Next appointment is 01/01/2023 Last filled 07/11/21 #3 each with 3 refills [facility] Office Visiton 07-03-2022 Follow-up visit [id number] Ashleigh Villegas 1945 F Date Provider Department Center 07/03/2022 JOSE LUIS CERDA [facility] Family History Problem Relation Age of Onset Coronary artery disease Brother 71* Comments: stents Other Mother Comments: AV repl Diabetes Mother Comments: age 71 of CHF, RF Other Brother 65* Comments: AAA repair Hypertension Brother COPD Father Comments: age 68, smoker Prostate cancer Brother Hypertension Sister Kidney cancer Sister 64* Prostate cancer Brother Family Status - Relation Status Age at Brother Alive Mother 71 Brother Alive Father 68 Sister Alive Level of Service:73750 IN OFFICE/OUTPATIENT ESTABLISHED MOD MDM 30-39 MIN Reason for Visit and Comments: Follow-up [625029] - 6 month med check [facility] Progress Noteon 07-03-2022 Progress Note [facility] [address] [facility] [address] Visit type: Established Patient Reason for Visit: [...] by mouth daily. Subjective: Patient ID: Ashleigh Villegas is a 77 y.o. female. HPI hypertensive [...] AND CURETTAGE OF UTERUS 2003 HEMORRHOID SURGERY 2013 TOTAL HIP ARTHROPLASTY Right 02/2020 Dr. Dill TUBAL LIGATION Family History Problem Relation Name Age of Onset Coronary artery disease Brother Eugenio 71.00 stents Other ([id number]) Mother AV repl Diabetes Mother age 71 of CHF, RF Other ([id number]) Brother cherry 65.00 AAA repair Hypertension Brother cherry COPD Father age 68, smoker Prostate cancer Brother Eugenio Hypertension Sister Mey Palafox Kidney cancer Sister Mey Palafox 64.00 Prostate cancer Brother cherry Objective: BP 138/84 Pulse 68 Temp 36.2 ?C (97.1 ?F) (Temporal) Ht 5' 3 (1.6 m) Wt 196 lb (88.9 kg) SpO2 97% BMI 34.72 kg/m? Physical Exam The physical exam is generally [...] Screening neurological exam is normal without focal de (more content not included)... Normal [facility] Vital Signs Date Time Vital Sign Value Performing Clinician Facility 04-18-2023 10:58-0500 Body height 160.[address] Sheila Contreras Work Phone: [facility] 04-18-2023 10:58-0500 Body mass index (BMI) [Ratio] 33.6 kg/m2 Dr. Sheila Contreras Work Phone: [facility] 04-18-2023 10:58-0500 Body weight [address] Sheila Contreras Work Phone: [facility] 04-18-2023 10:58-0500 Diastolic blood pressure 82 mm[Hg] Dr. Sheila Contreras Work Phone: [facility] 04-18-2023 10:58-0500 Heart rate 78 /min Dr. Sheila Contreras Work Phone: [facility] 04-18-2023 10:58-0500 Respiratory rate 16 /min Dr. Sheila Contreras Work Phone: [facility] 04-18-2023 10:58-0500 Systolic blood pressure 150 mm[Hg] Dr. Sheila Contreras Work Phone: [facility] 10-31-2022 11:25-0400 Diastolic blood pressure 88 mm[Hg] Bibiana Temple PA-C Work Phone: [facility] 10-31-2022 11:25-0400 Systolic blood pressure 160 mm[Hg] Bibiana BROWN-Mitchell Work Phone: [facility] 10-31-2022 11:04-0400 Body height 160 cm Bibiana Temple PA-C Work Phone: [facility] 10-31-2022 11:04-0400 Body mass index (BMI) [Ratio] 34.19 kg/m2 Bibiana Temple PA-C Work Phone: [facility] [employer] [place] [employer] 10-31-2022 11:04-0400 Body temperature 98.2 [degF] Bibiana Temple PA-C Work Phone: [facility] [place] [employer] 10-31-2022 11:04-0400 Body weight 87.54 kg Bibiana Temple PA-C Work Phone: [facility] [place] [employer] 10-31-2022 11:04-0400 Heart rate 61 /min Bibiana Temple PA-C Work Phone: [facility] [place] [employer] 10-31-2022 11:04-0400 SaO2% (BldA) [Mass fraction] 97 % Bibiana Temple PA-C Work Phone: [facility] [employer] [place] [employer] 07-03-2022 08:30-0400 Diastolic blood pressure 84 mm[Hg] Jose Luis Trevino DO Work Phone: [facility] [employer] [place] [employer] 07-03-2022 08:30-0400 Heart rate 68 /min Jose Luis Trevino DO Work Phone: [facility] [employer] [place] [employer] 07-03-2022 08:30-0400 Systolic blood pressure 138 mm[Hg] Jose Luis Gundersona DO Work Phone: [facility] [employer] [place] [employer] 07-03-2022 07:53-0400 Body height 160 cm Jose Luis Trevino DO Work Phone: [facility] [employer] [place] [employer] 07-03-2022 07:53-0400 Body mass index (BMI) [Ratio] 34.72 kg/m2 Jose Luis Gundersona DO Work Phone: [facility] [employer] [place] [employer] 07-03-2022 07:53-0400 Body temperature 97.11 [degF] Jose Luis Gundersona DO Work Phone: [facility] [employer] [place] [employer] 07-03-2022 07:53-0400 Body weight 88.91 kg Jose Luis Gundersona DO Work Phone: [facility] [employer] [place] [employer] 07-03-2022 07:53-0400 SaO2% (BldA) [Mass fraction] 97 % Jose Luis Trevino DO Work Phone: [facility] Encounters Encounter Date Encounter Type Care Provider Facility Start: 01-23-2025 Encounter for genera l adult medical [facility] Start: 01-01-2025 End: 01-01-2025 ambulatory [facility] Facility:[facility] Start: 09-30-2024 End: 09-30-2024 Patient encounter procedure Rojelio Middleton [facility] Work Phone: Start: 09-30-2024 End: 09-30-[address] Sheila Contreras MD Work Phone: [facility] Start: 05-07-[facility]24 [facility] Start: 05-07-2024 End: 05-07-2024 [facility] Start: 04-24-2024 End: 04-24-2024 ambulatory Sheila Minisa Facility:[facility] Start: 05-14-2023 Non-patient / Non-visit Dr. Darrell Contreras Work Phone: [facility] Work Phone: Start: 05-11-2023 Non-patient / Non-visit Dr. Darrell Contreras Work Phone: [facility] Start: 05-11-2023 Non-patient / Non-visit Dr. Darrell Contreras Work Phone: [facility] Start: 05-11-2023 End: 05-11-[address] Sheila Contreras Work Phone: [facility] Work Phone: Start: 05-11-2023 End: 05-11-[address] Sheila Contreras Work Phone: [facility] Work Phone: Start: 04-18-2023 End: 04-18-[address] Sheila Contreras Work Phone: [facility] Work Phone: Start: 03-09-2023 Non-patient / Non-visit Dr. Darrell Contreras Work Phone: [facility] Start: 03-09-2023 End: 03-09-[address] Sheila Contreras Work Phone: [facility] Work Phone: Start: 03-09-2023 End: 03-09-[address] [facility] Work Phone: Start: 02-08-2023 End: 02-08-[address] Sheila Contreras Work Phone: [facility] Start: 12-21-2022 End: 12-21-[address] Sheila Contreras Work Phone: [facility] Start: 11-09-2022 Refill Jose Luis diamond DO Work Phone: [facility] Comment on above: Mild peripheral [place] a Start: 10-31-2022 End: 10-31-2022 ambulatory BIBIANA TEMPLE [facility] Start: 10-31-2022 End: 10-31-2022 Office outpatient visit 15 minutes Bibiana Temple PA-C Work Phone: [facility] Comment on above: Mild peripheral [place] a (Primary Dx) Start: 07-03-2022 End: 07-03-2022 [facility] Start: 07-03-2022 End: 07-03-2022 Office outpatient visit 25 minutes Jose Luis Trevino DO Work Phone: [facility] Comment on above: Essential hypertensi on (Primary Dx); Mixed hypercholesterolemia and hypertriglyceridemia; Gastroesophageal reflux disease without esophagitis; Breast cancer screening other than mammogram; Lumbar degenerative disc disease; Primary osteoarthritis of both knees Procedures Date Procedure Procedure Detail Performing Clinician Start: 05-11-2023 Cardiovascular stres s test using pharmacologic stress agent Dr. Sheila Contreras Work Phone: Start: 01-02-2022 Lipid 1996 panel - S oz or Plasma Jose Luis Belinda DO Work Phone: Plan of Treatment Date Care Activity Detail Author Start: 01-02-2027 Lipid panel Lipid Panel [facility] Start: 01-01-2023 End: 01-01-2023 Patient encounter procedure [facility] Start: 12-01-2022 Influenza vaccination Influenza Vacc ine (#1) [facility] Start: 02-12-2012 Zoster Vaccines (2 of 3) Zoste r Vaccines (2 of 3) [facility] Start: 01-29-1963 DTaP/Tdap/Td Vaccine s (1 - Tdap) DTaP/Tdap/Td Vaccines (1 - Tdap) [facility] Start: 01-29-1962 Diabetes mellitus screening Diabetes Screening [facility] Start: 01-29-1962 Hepatitis C screening Hepatitis C Sc reening [facility] Start: 1956 Depression Screening Depression Scre ening [facility] Start: 1945 Hepatitis B Vaccines (1 of 3 - 3-dose series) Hepatitis B Vaccines (1 of 3 - 3-dose series) [facility] Start: 1945 Screening for osteoporosis Bone Density Scan [facility] Blood chemistry [facility] Immunizations Immunization Date Immunization Notes Care Provider Fa carla 12-22-2021 Covid-19, Pfizer Bivalent Booster, (Age 12y+), Im, 30 Mcg/0e Jose Luis Trevino DO Work Phone: [facility] 12-21-2021 Influenza, High-dose Seasonal, Quadrivalent, Preservative Free Jose Luis Trevino DO Work Phone: [facility] 12-21-2021 influenza virus vacc ine, unspecified formulation Bibiana Temple PA-C Work Phone: [facility] 06-30-2021 Covid-19, Pfizer Gra y Top, Do Not Dilute, (Age 12 Y+), Im, L Jose Luis Gundersona DO Work Phone: [facility] [employer] [place] [employer] 01-05-2021 Pfizer SARS-CoV-2 Vaccination Jose Luis Trevino DO Work Phone: [facility] 01-03-2021 Influenza, High-dose Seasonal, Quadrivalent, Preservative Free Jose Luis Albertolla DO Work Phone: [facility] 05-25-2020 Pfizer SARS-CoV-2 Vaccination Jose Luis Trevino DO Work Phone: [facility] 12-02-2019 influenza virus vacc ine, unspecified formulation Jose Luis Gundersona DO Work Phone: [facility] 12-02-2019 Influenza, High-dose Seasonal, Quadrivalent, Preservative Free Jose Luis Albertolla DO Work Phone: [facility] 12-02-2019 influenza, injectabl e, quadrivalent, preservative free Dr. Sheila Contreras Work Phone: [facility] 12-02-2019 influenza, seasonal, injectable [facility] Work Phone: 12-02-2019 influenza, seasonal, injectable, preservative free Jose Luis Albertolla DO Work Phone: [facility] 02-06-2019 influenza, high dose seasonal, preservative-free Jose Luis Almalla DO Work Phone: [facility] 01-18-2018 influenza, high dose seasonal, preservative-free Jose Luis Albertolla DO Work Phone: [facility] 01-12-2017 influenza, injectabl e, quadrivalent, contains preservative Jose Luis Almalla DO Work Phone: [facility] 07-14-2016 pneumococcal conjuga te vaccine, 13 valent Jose Luis Alberotlla DO Work Phone: [facility] 01-07-2016 influenza, injectabl e, quadrivalent, contains preservative Jose Luis Trevino DO Work Phone: [facility] [employer] [place] [employer] 01-01-2015 influenza virus vacc ine, unspecified formulation Jose Luis Trevino DO Work Phone: [facility] [place] [employer] 12-19-2012 influenza virus vacc ine, unspecified formulation Jose Luis Trevino DO Work Phone: [facility] [place] [employer] 12-18-2011 tetanus toxoid, unspecified formulation Jose Luis Trevino DO Work Phone: [facility] [place] [employer] 12-18-2011 zoster vaccine, live Jose Luis Trevino DO Work Phone: [facility] [place] [employer] 09-24-2010 pneumococcal polysaccharide vaccine, 23 valent Jose Luis Trevino DO Work Phone: [facility] [place] [employer] Payers Date Payer Category Payer Self-pay [id number] 2022 Medicare AETNA MEDICARE A DVANTAGE AETNA MEDICARE [id number] 2022-Present [address] [place] [address] Medicare O [id number] 2022 Medicare [id number] 2014 Unknown ANTHEM SECONDARY [id number] 2009 Private Health Insurance CIGNA [id number] 2008 Medicare MEDICARE PART A B [id number] 2006 Unknown ANTHEM [id number] Private Health Insurance AETNA MCR SEE NOTE [id number] Unknown [id number] Unknown [id number] Unknown [id number] Unknown [id number] Unknown [id number] Social History Date Type Detail Facility [facility] Work Phone: Start: 1945 Sex Assigned At Female [facility] Start: 04-18-2023 [facility] Never [facility] tobacco [facility] Start: 07-03-2022 End: 10-31-2022 Alcohol intake Current drinker of alcohol (finding) [facility] Start: 07-03-2022 End: 10-31-2022 Alcohol intake [facility] Start: 1945 Sex Assigned At Not on file [facility] Start: 06-23-2022 End: 10-31-2022 Exposure to SARS-CoV-2 (event) Not sure [facility] Start: 10-31-2022 Tobacco use panel [facility] Start: 10-18-2020 End: 04-18-2023 Tobacco smoking status [facility]IS Unknown if ever smoked [facility] Start: 10-18-2020 Occasional [facility] Start: 10-18-2020 Non-smoker [facility] Medical Equipment Procedure Code Equipment Code Equipment Origin al Text Equipment Identifier Dates 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 FDA Start: 02-04-2020 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 approach clusterhold acetab shell FDA Start: 02-04-2020 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 approach neck angle hip stem FDA Start: 02-04-2020 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 approach poly insert FDA Start: 02-04-2020 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 FDA Start: 02-04-2020 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 approach clusterhold acetab shell FDA Start: 02-04-2020 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 approach neck angle hip stem FDA Start: 02-04-2020 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 approach poly insert FDA Start: 02-04-2020 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 FDA Start: 02-04-2020 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 approach clusterhold acetab shell FDA Start: 02-04-2020 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 approach neck angle hip stem FDA Start: 02-04-2020 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 approach poly insert FDA Start: 02-04-2020 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 FDA Start: 02-04-2020 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 approach clusterhold acetab shell FDA Start: 02-04-2020 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 approach neck angle hip stem FDA Start: 02-04-2020 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 approach poly insert FDA Start: 02-04-2020 Clinical Notes 07-03-2022 to 11-09-2022 Telephone Encounter - Sandy Woods MA - 11/09/2022 9:25 AM EDTTelephone Encounter - Sandy Woods MA - 11/09/2022 9:25 AM EDTTelephone Encounter - Sherry Haskins - 11/09/2022 8:17 AM EDT Note Date & Type Note Facility 11-09-2022 Telephone encounter Note Rx loaded Last apt 10/31/22 [facility] 11-09-2022 Miscellaneous Notes Rx loaded Last apt 10/31/22 Ordering provider: [...] medication tab): 10/31/2022 documented in this encounter [facility] 11-09-2022 Telephone encounter Note Ordering provider: lola Date of last [...] of last refill (see medication tab): 10/31/2022 [facility] 10-31-2022 History of Present illness Narrative Images from the original note were not included. [facility] [address] [facility] [address] Dept: [phone] Dept Loc: [phone] Visit type: Established Patient Reason for Visit: [...] and chronic back pain who contacted the [facility] for next day appointment evaluation [...] disease), lumbosacral 2017 Diverticular disease Essential hypertension 1998 Family history of diabetes mellitus in mother type 2 DM GERD (gastroesophageal reflux disease) History of basal cell carcinoma anterior chest ([facility]) History of colonoscopy with polypectomy 08/2014 Vanessa, [...] artery disease Brother Eugenio 71.00 stents Other ([id number]) Mother AV repl Diabetes Mother age 71 of CHF, RF Other ([id number]) Brother cherry 65.00 AAA repair Hypertension Brother [...] prior to signing but minor errors in psychological operations officer may have occurred. documented in this encounter [facility] 07-03-2022 History of Present illness Narrative Images from the original note were not included. [facility] [address] [facility] [address] Visit type: Established Patient Reason for Visit: [...] by mouth daily. Subjective: Patient ID: Ashleigh Villegas is a 77 y.o. female. HPI hypertensive [...] artery disease Brother Eugenio 71.00 stents Other ([id number]) Mother AV repl Diabetes Mother age 71 of CHF, RF Other ([id number]) Brother cherry 65.00 AAA repair Hypertension Brother [...] or axillary adenopathy documented in [facility] Evaluation note No assessment inform ation available [facility] Work Phone: Evaluation note Diagnosis Essential hypertension- Primary Unspecified essential hypertension Mixed hypercholesterolemia and hypertriglyceridemia Mixed hyperlipidemia Gastroesophageal reflux disease without esophagitis Esophageal reflux Breast cancer screening other than mammogram Lumbar degenerative disc disease Primary osteoarthritis of both knees documented [facility]* Diagnosis Mild peripheral edema- Primary documented in this encounter [facility]* Diagnosis Mild peripheral edema [facility]* Diagnosis Onset Date Resolution Status Aortic valve stenosis chroni c HTN (hypertension) chronic Hypertensive heart disease c hronic Mitral regurgitation chronic [facility] Work Phone: Reason for referral (narrative)No reason for referral [facility] Work Phone: Summary Purpose Family History No Family History Records Found Relationship Condition Age at Onset Recorded Date/T ezio sister Malignant neoplasm Unknown Cardiac disease Unknown brother Malignant neoplasm Unknown Coronary artery disease Unknown mother Hypertension Unknown Diabetes mellitus Unknown Congestive heart failure Unknown father Chronic obstructive pulmonary disease Unk nown brother Abdominal aortic aneurysm (AAA) Unknown Hypertension Unknown Malignant neoplasm Unknown Advance Directives No Advanced Directives Records Found Advance Directive Response Recorded Date/ Time Advance Directives No August 07, 2013 7:14am Living Will Yes February 03 3:44pm Power of Vascular Tech Yes February 04, 2020 3:44pm Advance Directive Response Recorded Date/ Time Advance Directives No August 07, 2013 8:14am Chief Complaint and Reason for Visit Chief Complaint MURMUR Chief Complaint MURMUR ABN ECHO/FATIGUE (MIEDEL) FAUSTIN FAUSTIN Amb Documentation Reason for Visit Aortic valve stenosi s HTN (hypertension) Hypertensive heart disease Mitral regurgitation Chief Complaint Admit Date CONCERN FOR SINUS INFECTION September 30 7:16am Additional Source Comments Goals (unrecognized section and content) Goals may be documented in a n alternate sectionGoals may be documented in an alternate sectionGoals may be documented in an alternate sectionGoals may be documented in an alternate section Reason for Visit (unrecogniz ed section and content) Reason Comments Follow-up 6 month med check Reason Comments Foot Swelling Both feet Reason Onset Date Comments Med Refill 11/09/2022 Care Teams (unrecognized sec tion and content) Chronic Care Nurse Relationship Specialty Start Date End Date Jose Luis Trevino DO [address] [place] [address] PCP - General 09/30/16 Chronic Care Nurse Relationship Specialty Start Date End Date Jose Luis Trevino DO [address], [place] [phone] PCP - General 09/30/16 Chronic Care Nurse Relationship Specialty Start Date End Date Jose Luis Trevino DO [address], [place] [id number] PCP - General 09/30/16 Team Status: Active Member Role Status Dates Dr. Jose Luis Trevino DO Family Provider Active Dr. Sheila Contreras MD Primary Care Provider Active Team Status: Active Member Role Status Dates Dr. Sheila Contreras MD Primary Care Provider Active Dr. Lianne Peace MD Attending Provider Active Team Status: Inactive Member Role Status Dates Dr. Sheila Contreras MD Primary Care Provider, Attendin g Provider Active Team Status: Inactive Member Role Status Dates Dr. Sheila Contreras MD Primary Care Prov ider, Attending Provider, Referring Provider Active Team Status: Inactive Member Role Status Dates Dr. Sheila Contreras MD Primary Care Provider, Referrin g Provider Active Dr. Lianne Peace MD Attending Provider Active Team Status: Active Member Role Status Dates Dr. Sheila Contreras MD Primary Care Provider Active Dr. Lianne Peace MD Attending Provider , Referring Provider, Other Provider Active Team Status: Active Member Role Status Dates Dr. Sheila Contreras MD Primary Care Provider Active Ashley Junior THREAD GRINDER, THREAD GRINDER-C Attending Provider Active Team Status: Active Member Role Status Dates Dr. Sheila Contreras MD Primary Care Provider Active Dr. Geoffrey Lou MD Attending Provider Active Team Status: Inactive Member Role Status Dates Dr. Sheila Contreras MD Primary Care Provider Active Dr. Lianne Peace MD Attending Provider, Referring Pr ovider Active Team Status: Active Member Role/Relationship Status Dates Dr. Sheila Contreras MD Primary Care Provider Active Team Status: Inactive Member Role/Relationship Status Dates Dr. Sheila Contreras MD Primary Care Provider Active Start: September 30, 2024 End: September 30, 2024 Dr. Sheila Contreras MD Referring Provider Active Start: September 30, 2024 End: September 30, 2024 Rojelio BROWN, PA Attending Provider Active Start: September 30, 2024 End: September 30, 2024 INFORMATION SOURCE (unrecogn ized section and content) DATE CREATED AUTHOR 11/10/2022 [facility] [employer] [facility] DATE CREATED AUTHOR AUTHOR'S ORGANIZ ATION 01/25/2025 [facility] FOR RECORDS PERTAINING TO PATIENTS WHO ARE [...] ON THE PRIMARY CLINICAL RECORDS. [facility] [employer] [facility]. provides no warranty or guarantee of the accuracy or completeness of information in this document.
[2025-03-21 23:01] LABS: Anion Gap 12 (5-15); BUN 25 mg/dL (4-19); BUN/Creat Ratio 28.0 RATIO (10-20); Calcium,Total 9.2 mg/dL (7.6-11.0); Carbon Dioxide 24.2 mmol/L (21.0-32.0); Chloride 102 mmol/L (98-108); Estimated Creatinine Clearance 49.88 ml/min (50-250); Glucose 117 mg/dL (70-99); Potassium 3.5 mmol/L (3.3-5.1); Troponin T High Sensitivity 16 ng/L (<=14)
[2025-03-22] VITALS: BP 176/84
[2025-03-22 01:00] VITALS: BP 170/63; PULSE 78; RESP 19; O2SAT 98
[2025-03-22 01:08] LABS: Troponin T High Sens 2 HR 22 ng/L (<=14)
[2025-03-22 01:38] VITALS: BP 170/76; PULSE 75; RESP 13; TEMP 36; O2SAT 98
== END 2025-03-22 01:38 | disposition home or self-care (01) ==
PROVIDERS: Emergency Provider Emergency Medicine; PCP Family Medicine; Visit Provider Emergency Medicine
DX: R00.2 Palpitations (principal); I10 Essential (primary) hypertension; I35.0 Nonrheumatic aortic (valve) stenosis; I34.0 Nonrheumatic mitral (valve) insufficiency; K21.9 Gastro-esophageal reflux disease without esophagitis; Z79.82 Long term (current) use of aspirin; Z79.899 Other long term (current) drug therapy
CPT/HCPCS: 71046; 80048; 84484; 85025; 93005; 99284; A4216